=== PATIENT | female | born 1955 | race Two or more races ===

== ENCOUNTER 2022-01-28 12:07 | Inpatient (IN) | payer MEDICAID, OTHER ==
[~2022-01-28] VITALS: Ht 162.6 cm; Wt 77.1 kg
[2022-01-28] MEDS ORDERED: SODIUM CHLORIDE 0.9% 1,000 ML IV ONE (12:15)
[2022-01-28] MEDS ORDERED: cefTRIAXone 1GM/50ML D5W 50 ML IV ONE (12:15)
[2022-01-28] MEDS ORDERED: AZITHROMYCIN 500MG/ 250ML 250 ML IV ONE (12:15)
[2022-01-28] MEDS ORDERED: SODIUM CHLORIDE 0.9% 2,250 ML IV ONE (12:30)
[2022-01-28 15:16] LABS: Lactic Acid w/Reflex 3.1 mmol/L (0.4-2.0)
[2022-01-28] MEDS ORDERED: NOREPINEPHRINE 8 MG/250ML KIT 250 ML IV ONE (15:33)
[2022-01-28] MEDS: NOREPINEPHRINE 8 MG/250ML KIT 250 ML IV SCH (15:53)
[2022-01-28] MEDS ORDERED: LACTATED RINGER'S 2,250 ML IV ONE ×2 (16:30→17:15)
[2022-01-28] MEDS ORDERED: VANCOMYCIN PER PHARMACY 1,000 MG IV SCH (16:30)
[2022-01-28] MEDS ORDERED: NITROGLYCERIN 0.4 MG SL TAB SL PRN (16:30)
[2022-01-28] MEDS ORDERED: LORazepam 2MG/ML-1ML VIAL IV PRN (16:30)
[2022-01-28] MEDS ORDERED: MORPHINE SULFATE INJECTION 2 MG/ML SYRG IV PRN ×2 (16:30)
[2022-01-28 16:51] LABS: Basophils # (auto) 0 10 ^3/uL (0-0.2); Eosinophils # (auto) 0 10 ^3/uL (0-0.8); Mean Corpuscular Hemoglobin 22.2 pg (28.0-32.0); White Blood Cell 11.9 10^3/uL (4.4-10.8)
[2022-01-28 16:54] LABS: Basophils % (auto) 0.2 % (0.0-2.0); Eosinophils % (auto) 0.3 % (0.0-7.0); Hematocrit 25.4 % (36.0-46.0); Lymphocytes # (auto) 0.7 10 ^3/uL (0.4-5.4); Lymphocytes % (auto) 6.2 % (10.0-50.0); Mean Corpuscular Hgb Conc. 31.5 g/dL (32.0-36.0); Mean Corpuscular Volume 70.5 fL (80.0-100.0); Monocytes # (auto) 0.7 10 ^3/uL (0-1.3); Monocytes % (auto) 5.8 % (0.0-12.0); Neutrophils # (auto) 10.4 10 ^3/uL (1.6-8.6); Neutrophils % (auto) 87.5 % (37.0-80.0); Nucleated Red Blood Cells % 0.2 %; Red Cell Distribution Width 19.6 % (11.8-14.3)
[2022-01-28 17:08] LABS: Albumin 1.9 g/dL (3.4-5.0); BUN/Creatinine Ratio 12.9; Calcium 7.4 mg/dL (8.5-10.1); Potassium 4.3 mmol/L (3.5-5.1)
[2022-01-28] MEDS ORDERED: ACETAMINOPHEN 650 mg PER 20.3 mL UD PO ONE (17:15)
[2022-01-28 17:17] LABS: Bilirubin, Total 0.5 mg/dL (0.2-1.0); Total Protein 4.8 g/dL (6.4-8.2)
[2022-01-28] MEDS ORDERED: ENOXAPARIN SOD 30 MG/0.3 ML SYRINGE SC ONE (17:30)
[2022-01-28] MEDS ORDERED: SODIUM FERR GLUC 62.5MG/5ML 125 MG in SODIUM CHL 0.9% 100 ML IV ONE (17:30)
[2022-01-28 17:31] LABS: Urine Bacteria NONE SEEN /hpf (None Seen); Urine Blood Negative /uL (Negative); Urine Specific Gravity 1.027 (1.001-1.035); Urine WBC 1 /hpf (0 - 5)
[2022-01-28] MEDS ORDERED: SUCRALFATE 1 GM/10 ML ORAL SUSP PO ONE (18:00)
[2022-01-28] MEDS ORDERED: LIDOCAINE VISCOUS 2% 15ML UD MT ONE (18:00)
[2022-01-28] MEDS ORDERED: PROCHLORPERAZINE EDISYLATE 5 MG/ML 2ML VIAL IV PRN (18:00)
[2022-01-28] MEDS ORDERED: HYDROcodone-ACET 5/325MG TAB PO PRN (18:00)
[2022-01-28] MEDS ORDERED: DOCUSATE SOD 100 MG CAP PO PRN (18:00)
[2022-01-28] MEDS ORDERED: PANTOPRAZOLE 40 MG/10 ML VIAL INJ IV ONE (18:00)
[2022-01-28] MEDS ORDERED: HYDROcodone-ACET 5/325MG TAB PO ONE (18:00)
[2022-01-28] MEDS ORDERED: LACTULOSE 20Gm/30ML SOLN PO PRN (18:00)
[2022-01-28] MEDS ORDERED: LORazepam 0.5 MG TAB PO PRN (18:00)
[2022-01-28] MEDS: IPRATROPIUM BROM 0.5 MG/2.5ML INH SOL NEB SCH ×2 (18:00→22:08)
[2022-01-28] MEDS ORDERED: LIDOCAINE VISCOUS 2% 15ML UD MT PRN (18:00)
[2022-01-28] MEDS ORDERED: IPRATROPIUM BROM 0.5 MG/2.5ML INH SOL NEB ONE (18:00)
[2022-01-28] MEDS ORDERED: IPRATROPIUM BROM 0.5 MG/2.5ML INH SOL ONE (18:28)
[2022-01-28] MEDS: D5W/SOD CHLO 0.9% 1,000 ML IV SCH (18:41)
[2022-01-28] MEDS: PIPERACILLIN-TAZOB 3.375GM 100 ML IV SCH (18:42)
[2022-01-28 18:53] LABS: % Iron Saturation 4.9 % (15-50)
[2022-01-28 21:10] VITALS: BP 107/44
[2022-01-28] MEDS ORDERED: AMIODARONE HCL 150 MG in D5W 5% 100 ML IV ONE (21:30)
[2022-01-28] MEDS ORDERED: AMIODARONE 450mg/250ml AE 250 ML IV SCH (21:45)
[2022-01-28] MEDS ORDERED: AMIODARONE HCL (50 MG/ ML) 3 ML VIAL IV ONE (21:52)
[2022-01-28] MEDS ORDERED: DexAMETHasone SOD PHOS 4 MG/1ML SDV INJ IV SCH (22:00)
[2022-01-28] MEDS: SUCRALFATE 1 GM/10 ML ORAL SUSP PO SCH (22:30)
[2022-01-28] MEDS: ATORVASTATIN 20 MG TAB PO SCH (22:30)
[2022-01-28] MEDS ORDERED: VANCOMYCIN 1GM/250ML 250 ML IV ONE (23:15)
[2022-01-29] VITALS (56 sets, daily range): BP systolic 90–141; BP diastolic 29–64
[2022-01-29] MEDS: PIPERACILLIN-TAZOB 3.375GM 100 ML IV SCH ×4 (01:45→17:31)
[2022-01-29] MEDS: IPRATROPIUM BROM 0.5 MG/2.5ML INH SOL NEB SCH ×5 (02:19→18:13)
[2022-01-29] MEDS: D5W/SOD CHLO 0.9% 1,000 ML IV SCH ×2 (03:30→14:19)
[2022-01-29] MEDS ORDERED: AMIODARONE 450mg/250ml AE 250 ML IV SCH (03:45)
[2022-01-29 03:55] LABS: Basophils # (auto) 0 10 ^3/uL (0-0.2); Basophils % (auto) 0.2 % (0.0-2.0); Monocytes # (auto) 0.9 10 ^3/uL (0-1.3); Nucleated Red Blood Cells % 0.2 %
[2022-01-29 03:56] LABS: Eosinophils # (auto) 0.1 10 ^3/uL (0-0.8); Eosinophils % (auto) 0.4 % (0.0-7.0); Hemoglobin 7.6 g/dL (12.2-16.2); Lymphocytes # (auto) 0.5 10 ^3/uL (0.4-5.4); Lymphocytes % (auto) 3.7 % (10.0-50.0); Mean Corpuscular Hemoglobin 22.3 pg (28.0-32.0); Mean Corpuscular Hgb Conc. 31.6 g/dL (32.0-36.0); Mean Corpuscular Volume 70.6 fL (80.0-100.0); Monocytes % (auto) 6.2 % (0.0-12.0); Neutrophils # (auto) 13.3 10 ^3/uL (1.6-8.6); Neutrophils % (auto) 89.5 % (37.0-80.0); Red Cell Distribution Width 19.6 % (11.8-14.3); White Blood Cell 14.8 10^3/uL (4.4-10.8)
[2022-01-29 04:14] LABS: Albumin 1.7 g/dL (3.4-5.0); BUN/Creatinine Ratio 11.7; Calcium 6.9 mg/dL (8.5-10.1); Potassium 4.1 mmol/L (3.5-5.1)
[2022-01-29 04:17] LABS: Bilirubin, Total 0.6 mg/dL (0.2-1.0); Total Protein 4.1 g/dL (6.4-8.2)
[2022-01-29] MEDS: NOREPINEPHRINE 8 MG/250ML KIT 250 ML IV SCH (05:42)
[2022-01-29] MEDS: SUCRALFATE 1 GM/10 ML ORAL SUSP PO SCH ×4 (05:45→21:56)
[2022-01-29] MEDS ORDERED: ENOXAPARIN SOD 40 MG/0.4 ML SYRINGE SC SCH (10:00)
[2022-01-29] MEDS: THIAMINE HCL 100 MG TAB PO SCH (11:37)
[2022-01-29] MEDS: CHOLECALCIFEROL (VITD3) 2,000 UNIT CAP/TAB PO SCH (11:37)
[2022-01-29] MEDS: SODIUM FERR GLUC 62.5MG/5ML 125 MG in SODIUM CHL 0.9% 100 ML IV SCH (12:34)
[2022-01-29] MEDS: ONDANSETRON HCL 4 MG/2 ML VIAL IV PRN (12:35)
[2022-01-29] MEDS ORDERED: TPN PER PHARMACY 0 ML IV SCH (13:15)
[2022-01-29] MEDS: ENOXAPARIN SOD 30 MG/0.3 ML SYRINGE SC SCH (14:18)
[2022-01-29 14:29] LABS: Magnesium 1.7 mg/dL (1.6-2.6); Phosphorus 2.3 mg/dL (2.5-4.90)
[2022-01-29] MEDS: ASPirin 81 mg TAB PO SCH (14:38)
[2022-01-29] MEDS ORDERED: SODIUM PHOSPHATES 12 MEQ in SODIUM CHL 0.9% 100 ML IV ONE (17:00)
[2022-01-29] MEDS: MAGIC MOUTHWASH 55 ML SUSP MT SCH ×2 (18:21→21:57)
[2022-01-29] MEDS ORDERED: AMINO ACID INFUSION IN D10W 1,000 ML IV NR (20:00)
[2022-01-29] MEDS ORDERED: D5W/SOD CHLO 0.9% 1,000 ML IV SCH (20:00)
[2022-01-29] MEDS ORDERED: IPRATROPIUM BROM 0.5 MG/2.5ML INH SOL NEB PRN (21:30)
[2022-01-29] MEDS: ATORVASTATIN 20 MG TAB PO SCH (21:56)
[2022-01-29] MEDS: PANTOPRAZOLE 40 MG/10 ML VIAL INJ IV SCH (21:57)
[2022-01-29] MEDS: MORPHINE SULFATE INJECTION 2 MG/ML SYRG IV PRN (22:04)
[2022-01-30] VITALS (26 sets, daily range): BP systolic 82–134; BP diastolic 29–90
[2022-01-30] MEDS ORDERED: DEXTROSE (50%) 50ML SYRG IV SCH
[2022-01-30] MEDS: PIPERACILLIN-TAZOB 3.375GM 100 ML IV SCH ×2 (00:08→06:06)
[2022-01-30] MEDS: InsuLIN REG 1unit/0.01ml Soln (100units/ml) SC SCH ×4 (00:19→18:00)
[2022-01-30] MEDS: ACCU-CHEK COMFORT CURVE STRIP VI SCH ×4 (00:20→18:00)
[2022-01-30] MEDS: ONDANSETRON HCL 4 MG/2 ML VIAL IV PRN ×4 (00:20→20:05)
[2022-01-30 04:15] LABS: Basophils # (auto) 0 10 ^3/uL (0-0.2); Eosinophils # (auto) 0 10 ^3/uL (0-0.8); Mean Corpuscular Hemoglobin 22.4 pg (28.0-32.0); Nucleated Red Blood Cells % 0.2 %; Red Blood Cells 3.06 10^6/uL (4.0-5.20); White Blood Cell 12.2 10^3/uL (4.4-10.8)
[2022-01-30 04:17] LABS: Basophils % (auto) 0.3 % (0.0-2.0); Eosinophils % (auto) 0.1 % (0.0-7.0); Hematocrit 21.2 % (36.0-46.0); Lymphocytes # (auto) 1.2 10 ^3/uL (0.4-5.4); Mean Corpuscular Hgb Conc. 32.3 g/dL (32.0-36.0); Mean Corpuscular Volume 69.2 fL (80.0-100.0); Monocytes # (auto) 0.8 10 ^3/uL (0-1.3); Monocytes % (auto) 6.5 % (0.0-12.0); Neutrophils # (auto) 10.1 10 ^3/uL (1.6-8.6); Neutrophils % (auto) 83.1 % (37.0-80.0); Red Cell Distribution Width 19.1 % (11.8-14.3)
[2022-01-30 04:29] LABS: Albumin 1.4 g/dL (3.4-5.0); BUN/Creatinine Ratio 11.8; Calcium 7.3 mg/dL (8.5-10.1); Magnesium 1.7 mg/dL (1.6-2.6)
[2022-01-30 04:31] LABS: Bilirubin, Total 0.4 mg/dL (0.2-1.0); Total Protein 4.1 g/dL (6.4-8.2)
[2022-01-30 04:44] LABS: Potassium 2.9 mmol/L (3.5-5.1)
[2022-01-30 04:45] LABS: Hemoglobin 6.9 g/dL (12.2-16.2)
[2022-01-30] MEDS ORDERED: POTASSIUM CHL 20MEQ/100ML 100 ML IV ONE (05:30)
[2022-01-30] MEDS: MAGIC MOUTHWASH 55 ML SUSP MT SCH ×4 (06:07→22:00)
[2022-01-30] MEDS: SUCRALFATE 1 GM/10 ML ORAL SUSP PO SCH ×4 (07:00→22:10)
[2022-01-30] MEDS: PANTOPRAZOLE 40 MG/10 ML VIAL INJ IV SCH (09:39)
[2022-01-30] MEDS ORDERED: POTASSIUM PHOSPHATE 44 MEQ in D5W 5% 250 ML IV ONE (09:45)
[2022-01-30] MEDS: D5W/SOD CHL 0.45%/KCL 20MEQ 1,000 ML IV SCH ×2 (09:56→22:15)
[2022-01-30] MEDS: THIAMINE HCL 100 MG TAB PO SCH (10:00)
[2022-01-30] MEDS: CHOLECALCIFEROL (VITD3) 2,000 UNIT CAP/TAB PO SCH (10:00)
[2022-01-30] MEDS: ENOXAPARIN SOD 30 MG/0.3 ML SYRINGE SC SCH (10:00)
[2022-01-30] MEDS: ASPirin 81 mg TAB PO SCH (10:00)
[2022-01-30] MEDS: MORPHINE SULFATE INJECTION 2 MG/ML SYRG IV PRN ×2 (11:46→20:12)
[2022-01-30] MEDS: SODIUM FERR GLUC 62.5MG/5ML 125 MG in SODIUM CHL 0.9% 100 ML IV SCH (11:49)
[2022-01-30] MEDS ORDERED: VANCOMYCIN 1GM/250ML 250 ML IV SCH (14:00)
[2022-01-30] MEDS: CEFEPIME 1GM/ 50ML 50 ML IV SCH ×2 (14:00→22:11)
[2022-01-30 19:35] LABS: BUN/Creatinine Ratio 7.4; Calcium 7.5 mg/dL (8.5-10.1); Potassium 3.3 mmol/L (3.5-5.1)
[2022-01-30] MEDS ORDERED: TPN PER PHARMACY IV NR ×9 (20:00)
[2022-01-30] MEDS: ATORVASTATIN 20 MG TAB PO SCH (22:10)
[2022-01-31] MEDS: ACCU-CHEK COMFORT CURVE STRIP VI SCH ×4 (00:09→17:48)
[2022-01-31] MEDS: InsuLIN REG 1unit/0.01ml Soln (100units/ml) SC SCH ×4 (00:11→17:46)
[2022-01-31] MEDS: D5W/SOD CHL 0.45%/KCL 20MEQ 1,000 ML IV SCH ×3 (02:36→05:59)
[2022-01-31 05:00] VITALS: BP 117/58
[2022-01-31] MEDS: MAGIC MOUTHWASH 55 ML SUSP MT SCH ×4 (05:14→22:00)
[2022-01-31 05:30] LABS: Basophils # (auto) 0 10 ^3/uL (0-0.2); Basophils % (auto) 0.2 % (0.0-2.0); Eosinophils # (auto) 0 10 ^3/uL (0-0.8); Lymphocytes # (auto) 1.5 10 ^3/uL (0.4-5.4); Lymphocytes % (auto) 14.3 % (10.0-50.0); Monocytes # (auto) 0.5 10 ^3/uL (0-1.3); Neutrophils # (auto) 8.5 10 ^3/uL (1.6-8.6); Neutrophils % (auto) 80.4 % (37.0-80.0); White Blood Cell 10.6 10^3/uL (4.4-10.8)
[2022-01-31 05:33] LABS: Eosinophils % (auto) 0.1 % (0.0-7.0); Hematocrit 24.5 % (36.0-46.0); Hemoglobin 8.3 g/dL (12.2-16.2); Mean Corpuscular Hemoglobin 23.9 pg (28.0-32.0); Mean Corpuscular Volume 70.4 fL (80.0-100.0); Nucleated Red Blood Cells % 0.2 %; Red Blood Cells 3.47 10^6/uL (4.0-5.20)
[2022-01-31] MEDS: ONDANSETRON HCL 4 MG/2 ML VIAL IV PRN ×3 (05:35→23:16)
[2022-01-31] MEDS: CEFEPIME 1GM/ 50ML 50 ML IV SCH ×2 (05:36→08:39)
[2022-01-31] MEDS: SUCRALFATE 1 GM/10 ML ORAL SUSP PO SCH ×5 (05:36→23:10)
[2022-01-31] MEDS: MORPHINE SULFATE INJECTION 2 MG/ML SYRG IV PRN (05:36)
[2022-01-31 05:49] LABS: Albumin 1.4 g/dL (3.4-5.0); Calcium 7.2 mg/dL (8.5-10.1); Magnesium 1.2 mg/dL (1.6-2.6); Potassium 3.2 mmol/L (3.5-5.1)
[2022-01-31 05:54] LABS: BUN/Creatinine Ratio 8.5; Bilirubin, Total 0.5 mg/dL (0.2-1.0); Phosphorus 2.1 mg/dL (2.5-4.90); Total Protein 4.3 g/dL (6.4-8.2)
[2022-01-31 08:00] VITALS: BP 127/64
[2022-01-31] MEDS ORDERED: POTASSIUM PHOSPHATE 44 MEQ in D5W 5% 250 ML IV ONE (10:45)
[2022-01-31] MEDS: PANTOPRAZOLE 40 MG/10 ML VIAL INJ IV SCH (11:16)
[2022-01-31] MEDS: ASPirin 81 mg TAB PO SCH (11:16)
[2022-01-31] MEDS: CHOLECALCIFEROL (VITD3) 2,000 UNIT CAP/TAB PO SCH (11:17)
[2022-01-31] MEDS: THIAMINE HCL 100 MG TAB PO SCH (11:17)
[2022-01-31] MEDS: ENOXAPARIN SOD 30 MG/0.3 ML SYRINGE SC SCH (11:17)
[2022-01-31] MEDS: MAGNESIUM SULFATE 1GM/100ML 100 ML IV SCH ×2 (11:45→13:30)
[2022-01-31 12:00] VITALS: BP 116/65
[2022-01-31] MEDS: SODIUM FERR GLUC 62.5MG/5ML 125 MG in SODIUM CHL 0.9% 100 ML IV SCH (13:41)
[2022-01-31] MEDS: VANCOMYCIN 1GM/250ML 250 ML IV SCH (15:45)
[2022-01-31 16:00] VITALS: BP 109/58
[2022-01-31] MEDS ORDERED: TPN PER PHARMACY IV NR ×9 (20:00)
[2022-01-31 22:00] VITALS: BP 120/59
[2022-01-31] MEDS: ATORVASTATIN 20 MG TAB PO SCH (23:10)
[2022-02-01] MEDS: ACCU-CHEK COMFORT CURVE STRIP VI SCH ×4 (01:06→18:33)
[2022-02-01] MEDS ORDERED: MAGNESIUM SULFATE 1GM/100ML 100 ML IV ONE (01:10)
[2022-02-01] MEDS: MAGNESIUM SULFATE 1GM/100ML 100 ML IV SCH ×2 (01:21→02:52)
[2022-02-01] MEDS ORDERED: MAGNESIUM SULFATE 1GM/100ML 100 ML IV SCH (02:45)
[2022-02-01 05:00] VITALS: BP 125/61
[2022-02-01] MEDS: MAGIC MOUTHWASH 55 ML SUSP MT SCH (06:00)
[2022-02-01] MEDS: VANCOMYCIN 1GM/250ML 250 ML IV SCH (06:08)
[2022-02-01 06:18] LABS: Potassium 3.5 mmol/L (3.5-5.1)
[2022-02-01 06:25] LABS: Albumin 1.6 g/dL (3.4-5.0); BUN/Creatinine Ratio 12.8; Bilirubin, Total 0.4 mg/dL (0.2-1.0); Calcium 7.8 mg/dL (8.5-10.1); Magnesium 2.8 mg/dL (1.6-2.6); Phosphorus 3.3 mg/dL (2.5-4.90); Total Protein 4.9 g/dL (6.4-8.2)
[2022-02-01] MEDS: InsuLIN REG 1unit/0.01ml Soln (100units/ml) SC SCH ×4 (06:28→18:30)
[2022-02-01 06:30] LABS: Basophils # (auto) 0 10 ^3/uL (0-0.2); Basophils % (auto) 0.2 % (0.0-2.0); Eosinophils # (auto) 0 10 ^3/uL (0-0.8); Lymphocytes # (auto) 1.7 10 ^3/uL (0.4-5.4); Neutrophils # (auto) 6.8 10 ^3/uL (1.6-8.6)
[2022-02-01 06:31] LABS: Hematocrit 26.8 % (36.0-46.0); Hemoglobin 8.7 g/dL (12.2-16.2); Lymphocytes % (auto) 18.7 % (10.0-50.0); Mean Corpuscular Hemoglobin 23.6 pg (28.0-32.0); Mean Corpuscular Hgb Conc. 32.6 g/dL (32.0-36.0); Mean Corpuscular Volume 72.2 fL (80.0-100.0); Monocytes # (auto) 0.7 10 ^3/uL (0-1.3); Monocytes % (auto) 7.3 % (0.0-12.0); Neutrophils % (auto) 73.8 % (37.0-80.0); Nucleated Red Blood Cells % 0.1 %; Red Blood Cells 3.71 10^6/uL (4.0-5.20); Red Cell Distribution Width 21.4 % (11.8-14.3); White Blood Cell 9.3 10^3/uL (4.4-10.8)
[2022-02-01] MEDS: MORPHINE SULFATE INJECTION 2 MG/ML SYRG IV PRN (08:40)
[2022-02-01] MEDS: ONDANSETRON HCL 4 MG/2 ML VIAL IV PRN ×2 (08:40→21:52)
[2022-02-01 08:50] VITALS: BP 123/44
[2022-02-01] MEDS: SUCRALFATE 1 GM/10 ML ORAL SUSP PO SCH ×4 (09:30→22:00)
[2022-02-01] MEDS: THIAMINE HCL 100 MG TAB PO SCH (09:31)
[2022-02-01] MEDS: PANTOPRAZOLE 40 MG/10 ML VIAL INJ IV SCH (09:31)
[2022-02-01] MEDS: ASPirin 81 mg TAB PO SCH (09:32)
[2022-02-01] MEDS: CHOLECALCIFEROL (VITD3) 2,000 UNIT CAP/TAB PO SCH (09:32)
[2022-02-01] MEDS: ENOXAPARIN SOD 30 MG/0.3 ML SYRINGE SC SCH ×2 (09:32→09:34)
[2022-02-01] MEDS ORDERED: IOHEXOL 300 MG/ML 100ML BOTTLE IJ ONE (11:55)
[2022-02-01 12:30] VITALS: BP 107/54
[2022-02-01 12:50] VITALS: BP 118/60
[2022-02-01] MEDS: ceFAZolin 2 GM in D5W 5% 100 ML IV SCH (15:25)
[2022-02-01 16:57] VITALS: BP 123/48
[2022-02-01] MEDS: TPN PER PHARMACY IV NR ×9 (21:01)
[2022-02-01 21:43] VITALS: BP 111/54
[2022-02-02] MEDS: ceFAZolin 2 GM in D5W 5% 100 ML IV SCH ×4 (00:50→21:51)
[2022-02-02] MEDS: D5W/SOD CHLO 0.9% 1,000 ML IV SCH ×2 (01:58→15:45)
[2022-02-02 05:00] VITALS: BP 134/61
[2022-02-02] MEDS: ACCU-CHEK COMFORT CURVE STRIP VI SCH ×5 (05:56→23:51)
[2022-02-02] MEDS: InsuLIN REG 1unit/0.01ml Soln (100units/ml) SC SCH ×5 (05:56→23:51)
[2022-02-02] MEDS: ONDANSETRON HCL 4 MG/2 ML VIAL IV PRN ×2 (06:17→12:19)
[2022-02-02 06:30] LABS: Eosinophils # (auto) 0 10 ^3/uL (0-0.8); White Blood Cell 8.9 10^3/uL (4.4-10.8)
[2022-02-02 06:33] LABS: Basophils # (auto) 0.1 10 ^3/uL (0-0.2); Basophils % (auto) 0.6 % (0.0-2.0); Eosinophils % (auto) 0.2 % (0.0-7.0); Hemoglobin 8.8 g/dL (12.2-16.2); Lymphocytes % (auto) 22.5 % (10.0-50.0); Mean Corpuscular Hemoglobin 24.1 pg (28.0-32.0); Mean Corpuscular Hgb Conc. 33.9 g/dL (32.0-36.0); Monocytes # (auto) 0.9 10 ^3/uL (0-1.3); Neutrophils # (auto) 5.9 10 ^3/uL (1.6-8.6); Neutrophils % (auto) 66.7 % (37.0-80.0); Nucleated Red Blood Cells % 0.1 %; Red Blood Cells 3.66 10^6/uL (4.0-5.20)
[2022-02-02 06:43] LABS: Albumin 1.7 g/dL (3.4-5.0); BUN/Creatinine Ratio 11.4; Calcium 8.2 mg/dL (8.5-10.1); Magnesium 1.9 mg/dL (1.6-2.6); Potassium 3.6 mmol/L (3.5-5.1)
[2022-02-02 06:51] LABS: Red Cell Distribution Width 21.9 % (11.8-14.3)
[2022-02-02 07:06] LABS: Bilirubin, Total 0.4 mg/dL (0.2-1.0); Phosphorus 2.6 mg/dL (2.5-4.90); Total Protein 5.1 g/dL (6.4-8.2)
[2022-02-02 09:00] VITALS: BP 154/77
[2022-02-02] MEDS: ASPirin 81 mg TAB PO SCH (09:27)
[2022-02-02] MEDS: ENOXAPARIN SOD 30 MG/0.3 ML SYRINGE SC SCH (09:27)
[2022-02-02] MEDS: CHOLECALCIFEROL (VITD3) 2,000 UNIT CAP/TAB PO SCH (09:27)
[2022-02-02] MEDS: PANTOPRAZOLE 40 MG/10 ML VIAL INJ IV SCH (09:27)
[2022-02-02] MEDS: SUCRALFATE 1 GM/10 ML ORAL SUSP PO SCH ×5 (09:31→21:57)
[2022-02-02] MEDS: MORPHINE SULFATE INJECTION 2 MG/ML SYRG IV PRN (09:40)
[2022-02-02 13:00] VITALS: BP 141/71
[2022-02-02 17:00] VITALS: BP 134/73
[2022-02-02] MEDS: TPN PER PHARMACY IV NR ×9 (20:00)
[2022-02-02 21:25] VITALS: BP 143/67
[2022-02-03 05:04] VITALS: BP 167/74
[2022-02-03] MEDS: MORPHINE SULFATE INJECTION 2 MG/ML SYRG IV PRN (05:12)
[2022-02-03] MEDS: ONDANSETRON HCL 4 MG/2 ML VIAL IV PRN ×2 (05:13→10:54)
[2022-02-03] MEDS: ceFAZolin 2 GM in D5W 5% 100 ML IV SCH ×3 (05:30→21:46)
[2022-02-03] MEDS: ACCU-CHEK COMFORT CURVE STRIP VI SCH ×3 (05:31→18:13)
[2022-02-03] MEDS: InsuLIN REG 1unit/0.01ml Soln (100units/ml) SC SCH ×3 (05:31→18:00)
[2022-02-03] MEDS: SUCRALFATE 1 GM/10 ML ORAL SUSP PO SCH ×4 (06:26→21:46)
[2022-02-03 09:03] VITALS: BP 142/73
[2022-02-03] MEDS: ASPirin 81 mg TAB PO SCH (09:30)
[2022-02-03] MEDS: PANTOPRAZOLE 40 MG/10 ML VIAL INJ IV SCH (09:30)
[2022-02-03] MEDS: CHOLECALCIFEROL (VITD3) 2,000 UNIT CAP/TAB PO SCH (09:30)
[2022-02-03] MEDS: ENOXAPARIN SOD 30 MG/0.3 ML SYRINGE SC SCH (09:31)
[2022-02-03] MEDS: hydrALAZINE HCL 20 MG/ML VL IV PRN (11:47)
[2022-02-03 13:00] VITALS: BP 158/87
[2022-02-03] MEDS: PROMETHAZINE HCL 25 MG/ML 1ML IV PRN (14:26)
[2022-02-03 17:01] VITALS: BP 126/72
[2022-02-03] MEDS: ONDANSETRON ODT 4 MG TAB PO PRN (18:51)
[2022-02-03] MEDS: D5W/SOD CHLO 0.9% 1,000 ML IV SCH (19:30)
[2022-02-03 22:00] VITALS: BP 154/67
[2022-02-04] MEDS: ACCU-CHEK COMFORT CURVE STRIP VI SCH ×5 (00:04→23:45)
[2022-02-04] MEDS: hydrALAZINE HCL 20 MG/ML VL IV PRN (04:34)
[2022-02-04 05:00] VITALS: BP 170/72
[2022-02-04] MEDS: ceFAZolin 2 GM in D5W 5% 100 ML IV SCH ×3 (05:52→21:05)
[2022-02-04] MEDS: InsuLIN REG 1unit/0.01ml Soln (100units/ml) SC SCH ×5 (05:54→23:45)
[2022-02-04] MEDS: SUCRALFATE 1 GM/10 ML ORAL SUSP PO SCH ×4 (06:17→21:20)
[2022-02-04] MEDS: D5W/SOD CHLO 0.9% 1,000 ML IV SCH (07:45)
[2022-02-04 08:00] VITALS: BP 152/65
[2022-02-04 08:10] VITALS: BP 152/65
[2022-02-04] MEDS: ASPirin 81 mg TAB PO SCH (10:35)
[2022-02-04] MEDS: CHOLECALCIFEROL (VITD3) 2,000 UNIT CAP/TAB PO SCH (10:35)
[2022-02-04] MEDS: ENOXAPARIN SOD 30 MG/0.3 ML SYRINGE SC SCH (10:35)
[2022-02-04] MEDS: PANTOPRAZOLE 40 MG/10 ML VIAL INJ IV SCH (10:35)
[2022-02-04] MEDS: ONDANSETRON ODT 4 MG TAB PO PRN (10:36)
[2022-02-04] MEDS: PROMETHAZINE HCL 25 MG/ML 1ML IV PRN (10:45)
[2022-02-04 12:05] VITALS: BP 143/53
[2022-02-04 13:35] LABS: BUN/Creatinine Ratio 5.4; Calcium 8.4 mg/dL (8.5-10.1); Potassium 3.5 mmol/L (3.5-5.1)
[2022-02-04 13:42] LABS: Basophils # (auto) 0.1 10 ^3/uL (0-0.2); Eosinophils # (auto) 0 10 ^3/uL (0-0.8); Hemoglobin 9.2 g/dL (12.2-16.2); Mean Corpuscular Hgb Conc. 32.2 g/dL (32.0-36.0); Nucleated Red Blood Cells % 0.1 %
[2022-02-04 13:46] LABS: Basophils % (auto) 0.8 % (0.0-2.0); Eosinophils % (auto) 0.2 % (0.0-7.0); Hematocrit 28.4 % (36.0-46.0); Lymphocytes # (auto) 1.8 10 ^3/uL (0.4-5.4); Lymphocytes % (auto) 24.4 % (10.0-50.0); Mean Corpuscular Hemoglobin 23.4 pg (28.0-32.0); Monocytes # (auto) 0.6 10 ^3/uL (0-1.3); Monocytes % (auto) 8.3 % (0.0-12.0); Neutrophils % (auto) 66.3 % (37.0-80.0); Red Blood Cells 3.91 10^6/uL (4.0-5.20); Red Cell Distribution Width 22.4 % (11.8-14.3); White Blood Cell 7.6 10^3/uL (4.4-10.8)
[2022-02-04 13:48] LABS: INR 1.1 (0.9-1.15)
[2022-02-04 14:09] LABS: Mean Corpuscular Volume 72.8 fL (80.0-100.0)
[2022-02-04 16:05] VITALS: BP 136/63
[2022-02-04] MEDS: Ensure HIGH Protein Chocolate 8oz Bottle PO SCH (18:21)
[2022-02-04 22:00] VITALS: BP 134/72
[2022-02-05 05:00] VITALS: BP 141/71
[2022-02-05 05:32] LABS: Basophils # (auto) 0 10 ^3/uL (0-0.2); Eosinophils # (auto) 0 10 ^3/uL (0-0.8); Eosinophils % (auto) 0.2 % (0.0-7.0); Monocytes # (auto) 0.8 10 ^3/uL (0-1.3); White Blood Cell 7.5 10^3/uL (4.4-10.8)
[2022-02-05 05:36] LABS: Basophils % (auto) 0.4 % (0.0-2.0); Hematocrit 26.6 % (36.0-46.0); Hemoglobin 8.7 g/dL (12.2-16.2); Lymphocytes # (auto) 2.4 10 ^3/uL (0.4-5.4); Mean Corpuscular Hgb Conc. 32.6 g/dL (32.0-36.0); Mean Corpuscular Volume 73.8 fL (80.0-100.0); Neutrophils # (auto) 4.2 10 ^3/uL (1.6-8.6); Neutrophils % (auto) 56.4 % (37.0-80.0); Nucleated Red Blood Cells % 0.1 %; Red Blood Cells 3.61 10^6/uL (4.0-5.20)
[2022-02-05 05:43] LABS: Red Cell Distribution Width 23.1 % (11.8-14.3)
[2022-02-05 05:57] LABS: Potassium 3.6 mmol/L (3.5-5.1)
[2022-02-05] MEDS: InsuLIN REG 1unit/0.01ml Soln (100units/ml) SC SCH ×3 (06:00→17:51)
[2022-02-05 06:03] LABS: BUN/Creatinine Ratio 8.5; Calcium 8.4 mg/dL (8.5-10.1)
[2022-02-05] MEDS: ACCU-CHEK COMFORT CURVE STRIP VI SCH ×3 (06:17→17:45)
[2022-02-05] MEDS: ceFAZolin 2 GM in D5W 5% 100 ML IV SCH ×3 (06:39→22:07)
[2022-02-05] MEDS: SUCRALFATE 1 GM/10 ML ORAL SUSP PO SCH ×4 (06:40→22:00)
[2022-02-05 08:00] VITALS: BP 151/70
[2022-02-05] MEDS: Ensure HIGH Protein Chocolate 8oz Bottle PO SCH ×3 (08:00→17:45)
[2022-02-05] MEDS: PANTOPRAZOLE 40 MG/10 ML VIAL INJ IV SCH (10:00)
[2022-02-05] MEDS: CHOLECALCIFEROL (VITD3) 2,000 UNIT CAP/TAB PO SCH (10:00)
[2022-02-05] MEDS: ASPirin 81 mg TAB PO SCH (10:00)
[2022-02-05] MEDS: Pro-Stat SF 30ml Vanilla PO SCH (10:00)
[2022-02-05] MEDS: ENOXAPARIN SOD 30 MG/0.3 ML SYRINGE SC SCH (10:00)
[2022-02-05 12:10] VITALS: BP 130/76
[2022-02-05] MEDS ORDERED: BUPIVACAINE 0.25% INJ 50ML VIAL ONE (13:21)
[2022-02-05] MEDS ORDERED: MIDAZOLAM HCL 2MG/2ML 2ml VIAL (1mg/ml) ONE (13:25)
[2022-02-05] MEDS ORDERED: MEPERIDINE HCL (25 MG/ML) 1ML VIAL ONE (13:25)
[2022-02-05] MEDS ORDERED: DexAMETHasone SOD PHOS 10MG/1ML VIAL INJ ONE (13:51)
[2022-02-05] MEDS ORDERED: ceFAZolin 1GM VL ONE (13:57)
[2022-02-05] MEDS ORDERED: PROPOFOL 10 MG/ML 20 ML IV ONE (14:03)
[2022-02-05] MEDS ORDERED: ONDANSETRON HCL 4 MG/2 ML VIAL IV PRN (14:30)
[2022-02-05] MEDS ORDERED: MIDAZOLAM HCL 2MG/2ML 2ml VIAL (1mg/ml) IV PRN (14:30)
[2022-02-05] MEDS ORDERED: ePHEDrine SULFATE 50 MG/ML AMP IV PRN (14:30)
[2022-02-05] MEDS ORDERED: HYDROmorphone HCL 2 MG/ML VL IV PRN (14:30)
[2022-02-05] MEDS ORDERED: LABETALOL HCL 5 MG/ML 4ML SYRINGE IV PRN (14:30)
[2022-02-05] MEDS ORDERED: MORPHINE SULFATE 4 MG/ML SYR/VIAL IV PRN (14:30)
[2022-02-05] MEDS ORDERED: hydrALAZINE HCL 20 MG/ML VL IV PRN (14:30)
[2022-02-05 16:05] VITALS: BP 150/76
[2022-02-05] MEDS: PROMETHAZINE HCL 25 MG/ML 1ML IV PRN (17:16)
[2022-02-05] MEDS: MORPHINE SULFATE INJECTION 2 MG/ML SYRG IV PRN ×2 (17:17→22:49)
[2022-02-05] MEDS: ONDANSETRON ODT 4 MG TAB PO PRN (19:31)
[2022-02-05 21:58] VITALS: BP 146/86
[2022-02-06] MEDS: ACCU-CHEK COMFORT CURVE STRIP VI SCH ×3 (00:40→12:18)
[2022-02-06] MEDS: InsuLIN REG 1unit/0.01ml Soln (100units/ml) SC SCH ×3 (00:40→12:20)
[2022-02-06 05:00] VITALS: BP 143/74
[2022-02-06 05:29] LABS: Basophils # (auto) 0 10 ^3/uL (0-0.2); Eosinophils # (auto) 0 10 ^3/uL (0-0.8); Hemoglobin 8.8 g/dL (12.2-16.2); Mean Corpuscular Hemoglobin 24.3 pg (28.0-32.0); Monocytes # (auto) 0.2 10 ^3/uL (0-1.3); Red Blood Cells 3.62 10^6/uL (4.0-5.20)
[2022-02-06 05:31] LABS: Basophils % (auto) 0.1 % (0.0-2.0); Eosinophils % (auto) 0.1 % (0.0-7.0); Hematocrit 27.1 % (36.0-46.0); Lymphocytes # (auto) 1.7 10 ^3/uL (0.4-5.4); Lymphocytes % (auto) 29.3 % (10.0-50.0); Mean Corpuscular Hgb Conc. 32.5 g/dL (32.0-36.0); Mean Corpuscular Volume 74.8 fL (80.0-100.0); Monocytes % (auto) 3.4 % (0.0-12.0); Neutrophils # (auto) 3.9 10 ^3/uL (1.6-8.6); Neutrophils % (auto) 67.1 % (37.0-80.0); Nucleated Red Blood Cells % 0.2 %; White Blood Cell 5.8 10^3/uL (4.4-10.8)
[2022-02-06 05:38] LABS: Red Cell Distribution Width 23.7 % (11.8-14.3)
[2022-02-06 05:44] LABS: BUN/Creatinine Ratio 11.8; Calcium 8.7 mg/dL (8.5-10.1); Potassium 4.1 mmol/L (3.5-5.1)
[2022-02-06] MEDS: ceFAZolin 2 GM in D5W 5% 100 ML IV SCH ×2 (05:51→14:31)
[2022-02-06] MEDS: SUCRALFATE 1 GM/10 ML ORAL SUSP PO SCH ×2 (06:57→11:30)
[2022-02-06] MEDS: Ensure HIGH Protein Chocolate 8oz Bottle PO SCH (07:35)
[2022-02-06 08:00] VITALS: BP 106/65
[2022-02-06 08:05] VITALS: BP 106/65
[2022-02-06] MEDS: PROMETHAZINE HCL 25 MG/ML 1ML IV PRN (08:55)
[2022-02-06] MEDS: MORPHINE SULFATE INJECTION 2 MG/ML SYRG IV PRN (08:55)
[2022-02-06] MEDS: PANTOPRAZOLE 40 MG/10 ML VIAL INJ IV SCH (10:15)
[2022-02-06] MEDS: ENOXAPARIN SOD 30 MG/0.3 ML SYRINGE SC SCH (10:15)
[2022-02-06] MEDS: ASPirin 81 mg TAB PO SCH (10:16)
[2022-02-06] MEDS: Pro-Stat SF 30ml Vanilla PO SCH (10:16)
[2022-02-06] MEDS: CHOLECALCIFEROL (VITD3) 2,000 UNIT CAP/TAB PO SCH (10:16)
[2022-02-06 11:55] VITALS: BP 121/66
[2022-02-06 14:45] VITALS: BP 121/66
[2022-02-06 16:05] VITALS: BP 122/59
== END 2022-02-06 16:36 | disposition home health service (06) | DRG 720 ==
LOC: ER 12:07 → EDBD 12:07 → TELE 16:28 → ICU WEST 23:55 → TELE-EAST 01-29 03:53
PROVIDERS: ADMIT Hospitalist; ATTEND Internal Medicine Pulmonary Disease
PROC: 05HA33Z Insertion of Infusion Device into Left Brachial Vein, Percutaneous Approach (ICD-10-PCS; 2022-01-28)
PROC: B54NZZA Ultrasonography of Left Upper Extremity Veins, Guidance (ICD-10-PCS; 2022-01-28)
PROC: 30233N1 Transfusion of Nonautologous Red Blood Cells into Peripheral Vein, Percutaneous Approach (ICD-10-PCS; 2022-01-30)
PROC: 05HC33Z Insertion of Infusion Device into Left Basilic Vein, Percutaneous Approach (ICD-10-PCS; principal; 2022-02-04)
PROC: B54NZZA Ultrasonography of Left Upper Extremity Veins, Guidance (ICD-10-PCS; 2022-02-04)
PROC: 0JPT0WZ Removal of Totally Implantable Vascular Access Device from Trunk Subcutaneous Tissue and Fascia, Open Approach (ICD-10-PCS; 2022-02-05)
DX: A41.01 Sepsis due to Methicillin susceptible Staphylococcus aureus (principal); R65.21 Severe sepsis with septic shock; I21.4 Non-ST elevation (NSTEMI) myocardial infarction; J18.9 Pneumonia, unspecified organism; C16.9 Malignant neoplasm of stomach, unspecified; E43 Unspecified severe protein-calorie malnutrition; T80.218A Other infection due to central venous catheter, initial encounter; D62 Acute posthemorrhagic anemia; I80.9 Phlebitis and thrombophlebitis of unspecified site; J44.0 Chronic obstructive pulmonary disease with (acute) lower respiratory infection; R62.7 Adult failure to thrive; Z20.822 Contact with and (suspected) exposure to COVID-19; E86.0 Dehydration; K12.30 Oral mucositis (ulcerative), unspecified; R13.10 Dysphagia, unspecified; G89.3 Neoplasm related pain (acute) (chronic); N18.32 Chronic kidney disease, stage 3b; D64.81 Anemia due to antineoplastic chemotherapy; D50.9 Iron deficiency anemia, unspecified; D69.59 Other secondary thrombocytopenia; E78.5 Hyperlipidemia, unspecified; K52.9 Noninfective gastroenteritis and colitis, unspecified; K20.91 Esophagitis, unspecified with bleeding; Y83.8 Other surgical procedures as the cause of abnormal reaction of the patient, or of later complication, without mention of misadventure at the time of the procedure; Y92.89 Other specified places as the place of occurrence of the external cause; Z68.27 Body mass index [BMI] 27.0-27.9, adult; Z90.710 Acquired absence of both cervix and uterus; Z87.891 Personal history of nicotine dependence
CPT/HCPCS: 36415; 36589; 51702; 71045; 71260; 74177; 80048; 80053; 80202; 81001; 82270; 82542; 82962; 83540; 83550; 83605; 83735; 84100; 84478; 84484; 85025; 85379; 85610; 86850; 86900; 86901; 86920; 87040; 87077; 87081; 87147; 87186; 93005; 93306; 93970; 93971; 94640; 96361; 96365; 96367; 96368; 97163; 99291; C9113; G0378; J0690; J0696; J1100; J1815; J2250; J2405; J2543; J2704; J3480; J3490; J7042; J7060; Q0162

== ENCOUNTER 2022-03-15 10:49 | Inpatient (IN) | payer MEDICAID ==
[~2022-03-15] VITALS: Ht 162.6 cm; Wt 69.0 kg
[2022-03-15] MEDS ORDERED: SODIUM CHLORIDE 0.9% 500 ML IV ONE (11:15)
[2022-03-15] MEDS ORDERED: ONDANSETRON HCL 4 MG/2 ML VIAL IV ONE (11:15)
[2022-03-15 12:36] LABS: Basophils # (auto) 0.1 10 ^3/uL (0-0.2); Eosinophils # (auto) 0.1 10 ^3/uL (0-0.8); Hemoglobin 12.4 g/dL (12.2-16.2); Lymphocytes # (auto) 3.7 10 ^3/uL (0.4-5.4); Neutrophils # (auto) 8.1 10 ^3/uL (1.6-8.6); Neutrophils % (auto) 62.6 % (37.0-80.0); Nucleated Red Blood Cells % 0.1 %
[2022-03-15 12:38] LABS: Basophils % (auto) 0.4 % (0.0-2.0); Eosinophils % (auto) 0.6 % (0.0-7.0); Hematocrit 38.8 % (36.0-46.0); Lymphocytes % (auto) 28.3 % (10.0-50.0); Mean Corpuscular Hemoglobin 26.3 pg (28.0-32.0); Mean Corpuscular Hgb Conc. 31.9 g/dL (32.0-36.0); Mean Corpuscular Volume 82.4 fL (80.0-100.0); Monocytes % (auto) 8.1 % (0.0-12.0); Red Cell Distribution Width 27.3 % (11.8-14.3); White Blood Cell 12.9 10^3/uL (4.4-10.8)
[2022-03-15 12:51] LABS: Albumin 2.2 g/dL (3.4-5.0); Calcium 7.8 mg/dL (8.5-10.1); Potassium 3.7 mmol/L (3.5-5.1)
[2022-03-15 12:55] LABS: BUN/Creatinine Ratio 6.4; Bilirubin, Total 0.6 mg/dL (0.2-1.0); Total Protein 5.8 g/dL (6.4-8.2)
[2022-03-15] MEDS ORDERED: NITROGLYCERIN 0.4 MG SL TAB SL PRN (21:00)
[2022-03-15] MEDS: SODIUM CHLORIDE 0.9% 1,000 ML IV SCH (21:32)
[2022-03-15] MEDS: PIPERACILLIN-TAZOB 2.25GM 50 ML IV SCH (21:40)
[2022-03-16] MEDS ORDERED: PIPERACILLIN-TAZOB 3.375GM 100 ML IV SCH
[2022-03-16] MEDS: PIPERACILLIN-TAZOB 2.25GM 50 ML IV SCH (04:49)
[2022-03-16] MEDS: SODIUM CHLORIDE 0.9% 1,000 ML IV SCH ×3 (05:45→22:00)
[2022-03-16 07:41] LABS: Basophils # (auto) 0.1 10 ^3/uL (0-0.2); Basophils % (auto) 0.9 % (0.0-2.0); Eosinophils # (auto) 0.1 10 ^3/uL (0-0.8); Eosinophils % (auto) 1.4 % (0.0-7.0); Hematocrit 33.1 % (36.0-46.0); Lymphocytes # (auto) 2.5 10 ^3/uL (0.4-5.4); Lymphocytes % (auto) 30.8 % (10.0-50.0); Mean Corpuscular Hemoglobin 27.5 pg (28.0-32.0); Mean Corpuscular Hgb Conc. 33.3 g/dL (32.0-36.0); Mean Corpuscular Volume 82.5 fL (80.0-100.0); Monocytes # (auto) 0.7 10 ^3/uL (0-1.3); Monocytes % (auto) 8.9 % (0.0-12.0); Neutrophils # (auto) 4.8 10 ^3/uL (1.6-8.6); Red Blood Cells 4.01 10^6/uL (4.0-5.20); Red Cell Distribution Width 27.3 % (11.8-14.3); White Blood Cell 8.2 10^3/uL (4.4-10.8)
[2022-03-16 07:50] LABS: Albumin 1.8 g/dL (3.4-5.0); Calcium 7.3 mg/dL (8.5-10.1); Potassium 3.4 mmol/L (3.5-5.1)
[2022-03-16 07:52] LABS: BUN/Creatinine Ratio 8.2
[2022-03-16 07:55] LABS: Bilirubin, Total 0.6 mg/dL (0.2-1.0); Total Protein 4.5 g/dL (6.4-8.2)
[2022-03-16] MEDS: PIPERACILLIN-TAZOB 3.375GM 100 ML IV SCH ×3 (10:43→21:58)
[2022-03-16] MEDS: ENOXAPARIN SOD 40 MG/0.4 ML SYRINGE SC SCH (10:43)
[2022-03-16] MEDS: MORPHINE SULFATE INJ 2 MG/ml SYRG IV PRN ×2 (11:05→19:43)
[2022-03-16 13:00] VITALS: BP 120/76
[2022-03-16] MEDS: ONDANSETRON HCL 4 MG/2 ML VIAL IV PRN ×2 (13:28→19:42)
[2022-03-16] MEDS: SUCRALFATE 1 GM/10 ML ORAL SUSP GT SCH (16:47)
[2022-03-16 17:00] VITALS: BP 124/56
[2022-03-16 21:39] VITALS: BP 135/60
[2022-03-16] MEDS: PANTOPRAZOLE 40 MG/10 ML VIAL INJ IV SCH (21:58)
[2022-03-16 23:14] LABS: Urine Bacteria FEW /hpf (None Seen); Urine Blood Negative /uL (Negative); Urine Specific Gravity 1.013 (1.001-1.035); Urine WBC 13 /hpf (0 - 5)
[2022-03-17 04:39] VITALS: BP 137/64
[2022-03-17] MEDS: PIPERACILLIN-TAZOB 3.375GM 100 ML IV SCH ×3 (04:54→17:39)
[2022-03-17] MEDS: SODIUM CHLORIDE 0.9% 1,000 ML IV SCH ×2 (06:20→15:15)
[2022-03-17] MEDS: SUCRALFATE 1 GM/10 ML ORAL SUSP GT SCH ×2 (06:47→17:39)
[2022-03-17 09:39] VITALS: BP 140/53
[2022-03-17] MEDS: PANTOPRAZOLE 40 MG/10 ML VIAL INJ IV SCH (10:23)
[2022-03-17] MEDS: ENOXAPARIN SOD 40 MG/0.4 ML SYRINGE SC SCH (10:23)
[2022-03-17] MEDS: MORPHINE SULFATE INJ 2 MG/ml SYRG IV PRN ×2 (10:27→11:03)
[2022-03-17] MEDS: ONDANSETRON HCL 4 MG/2 ML VIAL IV PRN (10:28)
[2022-03-17] MEDS ORDERED: LOPERAMIDE HCL 2 MG CAP/TAB PO PRN (11:45)
[2022-03-17 12:26] LABS: Basophils # (auto) 0.1 10 ^3/uL (0-0.2); Basophils % (auto) 1.2 % (0.0-2.0); Eosinophils # (auto) 0 10 ^3/uL (0-0.8); Eosinophils % (auto) 0.1 % (0.0-7.0); Hematocrit 34.1 % (36.0-46.0); Hemoglobin 11.2 g/dL (12.2-16.2); Mean Corpuscular Hemoglobin 27.2 pg (28.0-32.0); Mean Corpuscular Hgb Conc. 32.8 g/dL (32.0-36.0); Monocytes # (auto) 0.5 10 ^3/uL (0-1.3); Monocytes % (auto) 5.9 % (0.0-12.0); Neutrophils # (auto) 4.7 10 ^3/uL (1.6-8.6); Neutrophils % (auto) 56.8 % (37.0-80.0); Nucleated Red Blood Cells % 0.1 %; Red Blood Cells 4.11 10^6/uL (4.0-5.20); White Blood Cell 8.2 10^3/uL (4.4-10.8)
[2022-03-17 12:32] LABS: Calcium 7.2 mg/dL (8.5-10.1)
[2022-03-17 12:36] LABS: BUN/Creatinine Ratio 5.8
[2022-03-17 12:39] LABS: Potassium 2.8 mmol/L (3.5-5.1)
[2022-03-17] MEDS ORDERED: POTASSIUM CHL 20MEQ/100ML 100 ML IV ONE (13:30)
[2022-03-17] MEDS ORDERED: POTASSIUM EFFERVESENT TAB 25 MEQ PO ONE (13:30)
[2022-03-17] MEDS ORDERED: METR500T PO (16:42)
[2022-03-17] MEDS ORDERED: VANC125PO PO (16:42)
[2022-03-17] MEDS ORDERED: LEVO500T31 PO (16:42)
[2022-03-17] MEDS ORDERED: PROB1CHW27 PO (16:42)
[2022-03-17 17:54] VITALS: BP 118/52
[2022-03-17] MEDS ORDERED: VANCOMYCIN HCL 125MG/5ML ORAL SOL PO SCH (18:00)
== END 2022-03-17 19:20 | disposition home health service (06) | DRG 245 ==
LOC: ER 10:49 → OVERFLOW 03-16 00:40 → CENTRAL 03-16 08:41
PROVIDERS: ADMIT Hospitalist; ATTEND Internal Medicine
DX: K51.00 Ulcerative (chronic) pancolitis without complications (principal); C18.9 Malignant neoplasm of colon, unspecified; E11.9 Type 2 diabetes mellitus without complications; I10 Essential (primary) hypertension; R13.10 Dysphagia, unspecified; Z82.49 Family history of ischemic heart disease and other diseases of the circulatory system; Z85.028 Personal history of other malignant neoplasm of stomach; Z83.3 Family history of diabetes mellitus; Z87.891 Personal history of nicotine dependence; Z90.5 Acquired absence of kidney; Z90.710 Acquired absence of both cervix and uterus
CPT/HCPCS: 36415; 74176; 80048; 80053; 81001; 82962; 83605; 84132; 85025; 87045; 87427; 87493; 96361; 96365; 96366; 96375; C9113; G0378; J2405; J2543; J3480

== ENCOUNTER 2022-05-23 00:13 | Emergency (ER) | payer MEDICAID ==
[~2022-05-23] VITALS: Ht 165.1 cm; Wt 131.0 kg
[~2022-05-23 00:13] MED LIST: LEVO500T31 PO; METR500T PO; PROB1CHW27 PO; VANC125PO PO
[2022-05-23 03:35] LABS: Basophils # (auto) 0.1 10 ^3/uL (0-0.2); Basophils % (auto) 0.8 % (0.0-2.0); Eosinophils # (auto) 0 10 ^3/uL (0-0.8); Eosinophils % (auto) 0.4 % (0.0-7.0); Hematocrit 43.2 % (36.0-46.0); Hemoglobin 14.4 g/dL (12.2-16.2); Lymphocytes # (auto) 2.7 10 ^3/uL (0.4-5.4); Lymphocytes % (auto) 23.9 % (10.0-50.0); Mean Corpuscular Hemoglobin 27.8 pg (28.0-32.0); Mean Corpuscular Hgb Conc. 33.2 g/dL (32.0-36.0); Mean Corpuscular Volume 83.8 fL (80.0-100.0); Monocytes # (auto) 0.8 10 ^3/uL (0-1.3); Monocytes % (auto) 7.3 % (0.0-12.0); Neutrophils # (auto) 7.7 10 ^3/uL (1.6-8.6); Neutrophils % (auto) 67.6 % (37.0-80.0); Nucleated Red Blood Cells % 0.1 %; Red Blood Cells 5.16 10^6/uL (4.0-5.20); Red Cell Distribution Width 15.2 % (11.8-14.3); White Blood Cell 11.4 10^3/uL (4.4-10.8)
[2022-05-23 03:50] LABS: Albumin 3.5 g/dL (3.4-5.0); Calcium 9.9 mg/dL (8.5-10.1); Magnesium 2.2 mg/dL (1.6-2.6)
[2022-05-23 03:53] LABS: BUN/Creatinine Ratio 16.4; Bilirubin, Total 0.8 mg/dL (0.2-1.0)
[2022-05-23 03:56] LABS: Potassium 2.1 mmol/L (3.5-5.1)
[2022-05-23] MEDS ORDERED: SODIUM CHLORIDE 0.9% 1,000 ML IV ONE ×2 (04:00→06:45)
[2022-05-23] MEDS: POTASSIUM CHL 20MEQ/100ML 100 ML IV SCH ×2 (04:47→08:25)
[2022-05-23] MEDS ORDERED: POTASSIUM EFFERVESENT TAB 25 MEQ PO ONE (06:45)
[2022-05-23] MEDS ORDERED: POTASSIUM CHL 20MEQ/100ML 100 ML IV ONE (06:45)
[2022-05-23 07:45] LABS: Basophils # (auto) 0 10 ^3/uL (0-0.2); Basophils % (auto) 0.3 % (0.0-2.0); Eosinophils # (auto) 0.1 10 ^3/uL (0-0.8); Eosinophils % (auto) 0.5 % (0.0-7.0); Hematocrit 44.1 % (36.0-46.0); Hemoglobin 14.5 g/dL (12.2-16.2); Lymphocytes # (auto) 2.9 10 ^3/uL (0.4-5.4); Lymphocytes % (auto) 28.3 % (10.0-50.0); Mean Corpuscular Hemoglobin 27.9 pg (28.0-32.0); Mean Corpuscular Hgb Conc. 32.9 g/dL (32.0-36.0); Mean Corpuscular Volume 84.9 fL (80.0-100.0); Monocytes # (auto) 0.7 10 ^3/uL (0-1.3); Monocytes % (auto) 6.9 % (0.0-12.0); Neutrophils # (auto) 6.6 10 ^3/uL (1.6-8.6); Nucleated Red Blood Cells % 0.3 %; Red Cell Distribution Width 14.7 % (11.8-14.3); White Blood Cell 10.3 10^3/uL (4.4-10.8)
[2022-05-23 08:03] LABS: Albumin 3.3 g/dL (3.4-5.0); Calcium 9.3 mg/dL (8.5-10.1)
[2022-05-23 08:06] LABS: Bilirubin, Total 0.7 mg/dL (0.2-1.0); Total Protein 6.6 g/dL (6.4-8.2)
[2022-05-23 08:16] LABS: Potassium 2.6 mmol/L (3.5-5.1)
[2022-05-23] MEDS: SODIUM CHLORIDE 0.9% 1,000 ML IV ONE ×2 (08:24→10:52)
[2022-05-23 08:36] LABS: Urine Bacteria NONE SEEN /hpf (None Seen); Urine Blood Negative /uL (Negative); Urine WBC 7 /hpf (0 - 5)
[2022-05-23] MEDS ORDERED: ONDANSETRON HCL 4 MG/2 ML VIAL IV ONE (09:00)
[2022-05-23 11:14] VITALS: BP 143/69
[2022-05-28] MEDS ORDERED: CIPR-173 PO (04:23)
== END 2022-05-23 12:23 | disposition home or self-care (01) ==
LOC: ER 00:13
DX: E87.6 Hypokalemia (principal); R11.2 Nausea with vomiting, unspecified; I10 Essential (primary) hypertension; E11.9 Type 2 diabetes mellitus without complications; Z90.710 Acquired absence of both cervix and uterus; Z87.891 Personal history of nicotine dependence; Z79.2 Long term (current) use of antibiotics; Z79.899 Other long term (current) drug therapy
CPT/HCPCS: 36415; 71045; 74176; 80053; 81001; 83605; 83735; 84484; 85025; 87040; 96365; 96366; 96375; 99285; J2405; J3480; J7030

== ENCOUNTER 2022-06-08 19:28 | Inpatient (IN) | payer MEDICAID ==
[~2022-06-08] VITALS: Ht 157.5 cm; Wt 61.7 kg
[~2022-06-08 19:28] MED LIST changes: +CIPR-173 PO
[2022-06-08 20:18] LABS: Basophils # (auto) 0.3 10 ^3/uL (0-0.2); Basophils % (auto) 2.4 % (0.0-2.0); Eosinophils # (auto) 0.1 10 ^3/uL (0-0.8); Eosinophils % (auto) 0.7 % (0.0-7.0); Hematocrit 49.7 % (36.0-46.0); Hemoglobin 16.1 g/dL (12.2-16.2); Lymphocytes % (auto) 30.2 % (10.0-50.0); Mean Corpuscular Hemoglobin 27.4 pg (28.0-32.0); Mean Corpuscular Hgb Conc. 32.4 g/dL (32.0-36.0); Mean Corpuscular Volume 84.6 fL (80.0-100.0); Monocytes # (auto) 0.8 10 ^3/uL (0-1.3); Monocytes % (auto) 5.7 % (0.0-12.0); Neutrophils # (auto) 8.1 10 ^3/uL (1.6-8.6); Nucleated Red Blood Cells % 0.2 %; Red Blood Cells 5.87 10^6/uL (4.0-5.20); Red Cell Distribution Width 15.1 % (11.8-14.3); White Blood Cell 13.3 10^3/uL (4.4-10.8)
[2022-06-08 20:41] LABS: Calcium 10.4 mg/dL (8.5-10.1)
[2022-06-08 20:44] LABS: BUN/Creatinine Ratio 16.4; Bilirubin, Total 1.2 mg/dL (0.2-1.0); Total Protein 7.6 g/dL (6.4-8.2)
[2022-06-08 21:20] LABS: Potassium 2.7 mmol/L (3.5-5.1)
[2022-06-08 21:23] LABS: Urine Bacteria NONE SEEN /hpf (None Seen); Urine Blood Negative /uL (Negative); Urine Hyaline Cast FEW /lpf (0 - 2); Urine Mucus FEW (None Seen); Urine Specific Gravity 1.036 (1.001-1.035); Urine WBC 7 /hpf (0 - 5)
[2022-06-09] MEDS ORDERED: SODIUM CHLORIDE 0.9% 1,000 ML IV ONE (02:45)
[2022-06-09] MEDS ORDERED: HYDROmorphone HCL 2 MG/ML VL/or syr IV ONE (02:45)
[2022-06-09] MEDS: POTASSIUM CHL 20MEQ/100ML 100 ML IV SCH ×2 (03:08→10:30)
[2022-06-09] MEDS ORDERED: ACETAMINOPHEN 325 MG TAB PO PRN (03:15)
[2022-06-09] MEDS ORDERED: HYDROcodone-ACET 5/325MG TAB PO PRN (03:15)
[2022-06-09] MEDS ORDERED: DOCUSATE SOD 100 MG CAP PO PRN (03:15)
[2022-06-09] MEDS ORDERED: cefTRIAXone 1GM/50ML D5W 50 ML IV ONE (03:15)
[2022-06-09] MEDS ORDERED: DEXTROSE (50%) 50ML SYRG IV PRN (03:15)
[2022-06-09] MEDS ORDERED: SODIUM CHLORIDE 0.9% 1,000 ML IV SCH (03:15)
[2022-06-09] MEDS ORDERED: NITROGLYCERIN 0.4 MG SL TAB SL PRN (04:15)
[2022-06-09] MEDS ORDERED: MORPHINE SULFATE INJ 2 MG/ml SYRG IV PRN (04:15)
[2022-06-09] MEDS: InsuLIN REG 1unit/0.01ml Soln (100units/ml) SC SCH ×3 (07:54→17:26)
[2022-06-09] MEDS: ACCU-CHEK COMFORT CURVE STRIP VI SCH ×3 (07:54→17:26)
[2022-06-09] MEDS: metroNIDAZOLE 500MG/100ML 100 ML IV SCH ×3 (08:06→22:32)
[2022-06-09] MEDS: ONDANSETRON HCL 4 MG/2 ML VIAL IV PRN (08:08)
[2022-06-09] MEDS: HYDROmorphone HCL 2 MG/ML VL/or syr IV PRN ×3 (08:08→21:16)
[2022-06-09] MEDS ORDERED: POTASSIUM CHL 20MEQ/100ML 100 ML IV ONE (10:52)
[2022-06-09] MEDS: FAMOTIDINE (10MG/ML) 2ML VL IV SCH ×2 (10:57→22:32)
[2022-06-09] MEDS: HEPARIN SODIUM (PORCINE) 5000 UNITS/ML 1ML VIAL SC SCH ×2 (11:08→22:33)
[2022-06-09 12:37] VITALS: BP 107/54
[2022-06-09 12:45] LABS: Basophils # (auto) 0 10 ^3/uL (0-0.2); Basophils % (auto) 0.4 % (0.0-2.0); Eosinophils # (auto) 0 10 ^3/uL (0-0.8); Eosinophils % (auto) 0.2 % (0.0-7.0); Hematocrit 38.4 % (36.0-46.0); Hemoglobin 12.5 g/dL (12.2-16.2); Lymphocytes # (auto) 1.6 10 ^3/uL (0.4-5.4); Lymphocytes % (auto) 14.3 % (10.0-50.0); Mean Corpuscular Hemoglobin 27.5 pg (28.0-32.0); Mean Corpuscular Hgb Conc. 32.6 g/dL (32.0-36.0); Mean Corpuscular Volume 84.3 fL (80.0-100.0); Monocytes # (auto) 0.6 10 ^3/uL (0-1.3); Monocytes % (auto) 5.3 % (0.0-12.0); Neutrophils # (auto) 8.9 10 ^3/uL (1.6-8.6); Neutrophils % (auto) 79.8 % (37.0-80.0); Red Blood Cells 4.56 10^6/uL (4.0-5.20); White Blood Cell 11.2 10^3/uL (4.4-10.8)
[2022-06-09 12:56] LABS: Albumin 3.1 g/dL (3.4-5.0); Calcium 8.9 mg/dL (8.5-10.1)
[2022-06-09 12:58] LABS: Potassium 2.4 mmol/L (3.5-5.1)
[2022-06-09 12:59] LABS: BUN/Creatinine Ratio 24.6; Bilirubin, Total 0.9 mg/dL (0.2-1.0); Total Protein 6.2 g/dL (6.4-8.2)
[2022-06-09] MEDS: SOD CHL 0.9%/ KCL 40MEQ 1,000 ML IV SCH (13:08)
[2022-06-09] MEDS ORDERED: POTASSIUM CHLORIDE 60 MEQ, LIDOCAINE 1% (LOCAL ANESTH.) 6 ML in SODIUM CHL 0.9% 500 ML IV ONE (13:15)
[2022-06-09] MEDS ORDERED: HYDR-4798 PO (16:58)
[2022-06-09] MEDS ORDERED: PANT1INJ3 PO (16:58)
[2022-06-09] MEDS ORDERED: FENT75DI2 TD (16:58)
[2022-06-09] MEDS ORDERED: OMEP20TA PO (16:58)
[2022-06-09 17:00] VITALS: BP 95/59
[2022-06-09 17:09] VITALS: BP 123/73
[2022-06-09 20:00] VITALS: BP 128/50
[2022-06-09 22:00] VITALS: BP 128/47
[2022-06-10] MEDS: ACCU-CHEK COMFORT CURVE STRIP VI SCH ×5 (00:38→23:49)
[2022-06-10] MEDS: SOD CHL 0.9%/ KCL 40MEQ 1,000 ML IV SCH ×3 (01:38→19:15)
[2022-06-10 05:00] VITALS: BP 113/56
[2022-06-10] MEDS: metroNIDAZOLE 500MG/100ML 100 ML IV SCH ×3 (05:25→21:38)
[2022-06-10] MEDS: HYDROmorphone HCL 2 MG/ML VL/or syr IV PRN ×4 (05:25→20:11)
[2022-06-10 05:39] LABS: Basophils # (auto) 0.1 10 ^3/uL (0-0.2); Basophils % (auto) 1.2 % (0.0-2.0); Eosinophils # (auto) 0.1 10 ^3/uL (0-0.8); Hemoglobin 11.2 g/dL (12.2-16.2); Lymphocytes # (auto) 1.7 10 ^3/uL (0.4-5.4); Lymphocytes % (auto) 39.8 % (10.0-50.0); Mean Corpuscular Hgb Conc. 33.1 g/dL (32.0-36.0); Mean Corpuscular Volume 84.6 fL (80.0-100.0); Monocytes # (auto) 0.3 10 ^3/uL (0-1.3); Monocytes % (auto) 6.7 % (0.0-12.0); Neutrophils # (auto) 2.1 10 ^3/uL (1.6-8.6); Neutrophils % (auto) 49.3 % (37.0-80.0); Nucleated Red Blood Cells % 0.1 %; Red Blood Cells 4.02 10^6/uL (4.0-5.20); Red Cell Distribution Width 15.2 % (11.8-14.3); White Blood Cell 4.3 10^3/uL (4.4-10.8)
[2022-06-10 05:52] LABS: Albumin 2.7 g/dL (3.4-5.0); Calcium 8.7 mg/dL (8.5-10.1); Potassium 3.4 mmol/L (3.5-5.1)
[2022-06-10 05:54] LABS: BUN/Creatinine Ratio 28.6
[2022-06-10] MEDS: InsuLIN REG 1unit/0.01ml Soln (100units/ml) SC SCH ×5 (05:55→23:50)
[2022-06-10 05:58] LABS: Bilirubin, Total 0.8 mg/dL (0.2-1.0); Total Protein 5.3 g/dL (6.4-8.2)
[2022-06-10 09:00] VITALS: BP 128/70
[2022-06-10] MEDS: cefTRIAXone 1GM/50ML D5W 50 ML IV SCH (09:23)
[2022-06-10] MEDS: FAMOTIDINE (10MG/ML) 2ML VL IV SCH ×2 (09:23→21:38)
[2022-06-10] MEDS: HEPARIN SODIUM (PORCINE) 5000 UNITS/ML 1ML VIAL SC SCH ×2 (09:26→21:45)
[2022-06-10] MEDS ORDERED: TPN PER PHARMACY 0 ML IV SCH (09:34)
[2022-06-10 09:35] LABS: INR 1.04 (0.9-1.15); Partial Thromboplastin Time 24.1 sec (24.6-33.4)
[2022-06-10 10:17] LABS: Hepatitis B Surface Antibody Negative (Negative)
[2022-06-10 10:45] LABS: Hepatitis A Total Antibody Positive (Negative)
[2022-06-10 12:40] LABS: Hepatitis C Antibody Negative (Negative)
[2022-06-10 13:00] VITALS: BP 118/53
[2022-06-10 14:24] LABS: Magnesium 2.2 mg/dL (1.6-2.6); Phosphorus 1.5 mg/dL (2.5-4.90)
[2022-06-10] MEDS ORDERED: POTASSIUM CHL 20MEQ/100ML 100 ML IV ONE (15:30)
[2022-06-10] MEDS ORDERED: POTASSIUM PHOSPHATE 44 MEQ in D5W 5% 250 ML IV ONE (17:00)
[2022-06-10 17:22] VITALS: BP 134/61
[2022-06-10] MEDS ORDERED: TPN PER PHARMACY IV NR ×7 (20:00)
[2022-06-10 22:00] VITALS: BP 130/70
[2022-06-10] MEDS ORDERED: FENTANYL 50 MCG TD SCH (23:30)
[2022-06-11] MEDS: fentaNYL 50MCG/HR 50 MCG/HR PAT TD SCH (00:06)
[2022-06-11] MEDS: HYDROmorphone HCL 2 MG/ML VL/or syr IV PRN ×6 (00:10→21:16)
[2022-06-11 05:00] VITALS: BP 125/71
[2022-06-11] MEDS: SOD CHL 0.9%/ KCL 40MEQ 1,000 ML IV SCH (05:15)
[2022-06-11 05:23] LABS: Basophils # (auto) 0 10 ^3/uL (0-0.2); Basophils % (auto) 0.9 % (0.0-2.0); Eosinophils # (auto) 0.2 10 ^3/uL (0-0.8); Eosinophils % (auto) 3.4 % (0.0-7.0); Hemoglobin 11.3 g/dL (12.2-16.2); Lymphocytes % (auto) 40.7 % (10.0-50.0); Mean Corpuscular Hemoglobin 28.3 pg (28.0-32.0); Mean Corpuscular Hgb Conc. 33.3 g/dL (32.0-36.0); Mean Corpuscular Volume 84.9 fL (80.0-100.0); Monocytes # (auto) 0.4 10 ^3/uL (0-1.3); Monocytes % (auto) 8.3 % (0.0-12.0); Neutrophils # (auto) 2.3 10 ^3/uL (1.6-8.6); Neutrophils % (auto) 46.7 % (37.0-80.0); Nucleated Red Blood Cells % 0.2 %; White Blood Cell 4.9 10^3/uL (4.4-10.8)
[2022-06-11 05:31] LABS: Albumin 2.6 g/dL (3.4-5.0); Calcium 8.5 mg/dL (8.5-10.1); Potassium 3.9 mmol/L (3.5-5.1)
[2022-06-11 05:35] LABS: BUN/Creatinine Ratio 20.5; Bilirubin, Total 0.5 mg/dL (0.2-1.0); Total Protein 5.5 g/dL (6.4-8.2)
[2022-06-11] MEDS: metroNIDAZOLE 500MG/100ML 100 ML IV SCH ×3 (05:48→21:49)
[2022-06-11] MEDS: InsuLIN REG 1unit/0.01ml Soln (100units/ml) SC SCH ×4 (05:50→23:31)
[2022-06-11] MEDS: ACCU-CHEK COMFORT CURVE STRIP VI SCH ×4 (05:50→23:11)
[2022-06-11] MEDS: cefTRIAXone 1GM/50ML D5W 50 ML IV SCH (08:40)
[2022-06-11] MEDS: FAMOTIDINE (10MG/ML) 2ML VL IV SCH ×2 (08:40→21:49)
[2022-06-11] MEDS: HEPARIN SODIUM (PORCINE) 5000 UNITS/ML 1ML VIAL SC SCH ×2 (08:48→21:49)
[2022-06-11] MEDS: ONDANSETRON HCL 4 MG/2 ML VIAL IV PRN ×4 (08:56→21:16)
[2022-06-11 09:14] VITALS: BP 138/67
[2022-06-11] MEDS: SODIUM CHLORIDE 0.9% 1,000 ML IV SCH ×2 (10:14→23:11)
[2022-06-11 14:58] VITALS: BP 135/51
[2022-06-11 16:54] VITALS: BP 127/55
[2022-06-11] MEDS ORDERED: TPN PER PHARMACY IV NR ×8 (20:00)
[2022-06-11 22:00] VITALS: BP 141/56
[2022-06-12] MEDS: ONDANSETRON HCL 4 MG/2 ML VIAL IV PRN ×5 (01:18→20:50)
[2022-06-12] MEDS: HYDROmorphone HCL 2 MG/ML VL/or syr IV PRN ×5 (01:19→20:50)
[2022-06-12 05:00] VITALS: BP 152/89
[2022-06-12] MEDS: metroNIDAZOLE 500MG/100ML 100 ML IV SCH ×3 (05:22→22:54)
[2022-06-12] MEDS: ACCU-CHEK COMFORT CURVE STRIP VI SCH ×4 (05:23→23:54)
[2022-06-12] MEDS: InsuLIN REG 1unit/0.01ml Soln (100units/ml) SC SCH ×5 (05:32→23:55)
[2022-06-12 06:12] LABS: Basophils # (auto) 0.1 10 ^3/uL (0-0.2); Basophils % (auto) 0.7 % (0.0-2.0); Eosinophils # (auto) 0.1 10 ^3/uL (0-0.8); Eosinophils % (auto) 1.3 % (0.0-7.0); Hematocrit 35.4 % (36.0-46.0); Hemoglobin 11.7 g/dL (12.2-16.2); Lymphocytes # (auto) 1.7 10 ^3/uL (0.4-5.4); Lymphocytes % (auto) 22.3 % (10.0-50.0); Mean Corpuscular Hemoglobin 27.9 pg (28.0-32.0); Mean Corpuscular Volume 84.3 fL (80.0-100.0); Monocytes # (auto) 0.5 10 ^3/uL (0-1.3); Neutrophils # (auto) 5.3 10 ^3/uL (1.6-8.6); Neutrophils % (auto) 69.7 % (37.0-80.0); Red Cell Distribution Width 15.1 % (11.8-14.3); White Blood Cell 7.6 10^3/uL (4.4-10.8)
[2022-06-12 06:24] LABS: Albumin 2.6 g/dL (3.4-5.0); Calcium 8.2 mg/dL (8.5-10.1); Magnesium 1.6 mg/dL (1.6-2.6); Potassium 3.2 mmol/L (3.5-5.1)
[2022-06-12 06:33] LABS: BUN/Creatinine Ratio 19.7; Bilirubin, Total 0.4 mg/dL (0.2-1.0); Phosphorus 1.8 mg/dL (2.5-4.90); Total Protein 5.5 g/dL (6.4-8.2)
[2022-06-12 08:10] VITALS: BP 144/73
[2022-06-12] MEDS: cefTRIAXone 1GM/50ML D5W 50 ML IV SCH (09:27)
[2022-06-12] MEDS: FAMOTIDINE (10MG/ML) 2ML VL IV SCH ×2 (09:27→20:51)
[2022-06-12] MEDS: HEPARIN SODIUM (PORCINE) 5000 UNITS/ML 1ML VIAL SC SCH ×2 (09:28→20:51)
[2022-06-12] MEDS ORDERED: POTASSIUM PHOSPHATE 44 MEQ in D5W 5% 250 ML IV ONE (09:45)
[2022-06-12] MEDS: ASCORBIC ACID 500 MG TAB PO SCH ×2 (10:00→20:52)
[2022-06-12] MEDS: ZINC SULFATE 220mg CAP or TAB PO SCH (10:00)
[2022-06-12] MEDS: CHOLECALCIFEROL (VITD3) 2,000 UNIT CAP/TAB PO SCH (10:00)
[2022-06-12] MEDS: MAGNESIUM SULFATE 1GM/100ML 100 ML IV SCH ×4 (11:00→23:57)
[2022-06-12 12:05] VITALS: BP 139/73
[2022-06-12] MEDS ORDERED: POTASSIUM CHL 20MEQ/100ML 100 ML IV ONE ×2 (12:30→21:30)
[2022-06-12] MEDS: SODIUM CHLORIDE 0.9% 1,000 ML IV SCH (12:42)
[2022-06-12] MEDS ORDERED: MIDAZOLAM HCL 5 MG/ML-1ML VIAL ONE (12:55)
[2022-06-12] MEDS ORDERED: SODIUM CHLORIDE LOCK 10 ML ONE (12:55)
[2022-06-12] MEDS ORDERED: diphenhdrAMINE HCL 50 MG/1 ML VL ONE (12:55)
[2022-06-12] MEDS ORDERED: fentaNYL CITRATE 100 MCG/2 ML VL ONE (12:56)
[2022-06-12] MEDS ORDERED: LIDOCAINE VISCOUS 2% 15ML UD ONE (12:56)
[2022-06-12] MEDS ORDERED: LIDOCAINE VISCOUS 2% 15ML UD MT ONE (16:54)
[2022-06-12] MEDS ORDERED: diphenhdrAMINE HCL 50 MG/1 ML VL IV ONE ×2 (16:56→17:00)
[2022-06-12] MEDS ORDERED: fentaNYL CITRATE 100 MCG/2 ML VL IV ONE (16:56)
[2022-06-12] MEDS ORDERED: MIDAZOLAM HCL 5 MG/ML-1ML VIAL IV ONE (16:56)
[2022-06-12 17:08] VITALS: BP 137/76
[2022-06-12] MEDS ORDERED: TPN PER PHARMACY IV NR ×11 (20:00)
[2022-06-12 22:00] VITALS: BP 119/55
[2022-06-13] MEDS: MAGNESIUM SULFATE 1GM/100ML 100 ML IV SCH (01:07)
[2022-06-13] MEDS: SODIUM CHLORIDE 0.9% 1,000 ML IV SCH ×2 (01:45→15:21)
[2022-06-13] MEDS: HYDROmorphone HCL 2 MG/ML VL/or syr IV PRN ×5 (03:36→22:15)
[2022-06-13 05:00] VITALS: BP 99/47
[2022-06-13] MEDS: metroNIDAZOLE 500MG/100ML 100 ML IV SCH ×2 (05:55→13:54)
[2022-06-13] MEDS: InsuLIN REG 1unit/0.01ml Soln (100units/ml) SC SCH ×4 (06:00→23:28)
[2022-06-13] MEDS: ACCU-CHEK COMFORT CURVE STRIP VI SCH ×4 (06:00→23:20)
[2022-06-13 06:01] LABS: Potassium 3.4 mmol/L (3.5-5.1)
[2022-06-13 06:27] LABS: Albumin 2.3 g/dL (3.4-5.0); BUN/Creatinine Ratio 21.2; Calcium 8.2 mg/dL (8.5-10.1); Magnesium 2.6 mg/dL (1.6-2.6)
[2022-06-13 06:30] LABS: Bilirubin, Total 0.3 mg/dL (0.2-1.0); Phosphorus 2.9 mg/dL (2.5-4.90); Total Protein 4.9 g/dL (6.4-8.2)
[2022-06-13 08:42] VITALS: BP 121/50
[2022-06-13] MEDS: ASCORBIC ACID 500 MG TAB PO SCH ×3 (09:38→22:00)
[2022-06-13] MEDS: ZINC SULFATE 220mg CAP or TAB PO SCH ×2 (09:38→09:55)
[2022-06-13] MEDS: FAMOTIDINE (10MG/ML) 2ML VL IV SCH ×2 (09:38→20:29)
[2022-06-13] MEDS: CHOLECALCIFEROL (VITD3) 2,000 UNIT CAP/TAB PO SCH ×2 (09:39→09:55)
[2022-06-13] MEDS: cefTRIAXone 1GM/50ML D5W 50 ML IV SCH (09:40)
[2022-06-13] MEDS: HEPARIN SODIUM (PORCINE) 5000 UNITS/ML 1ML VIAL SC SCH ×2 (09:56→22:01)
[2022-06-13] MEDS: POTASSIUM CHL 20MEQ/100ML 100 ML IV SCH ×3 (12:00→18:00)
[2022-06-13 13:00] VITALS: BP 152/69
[2022-06-13] MEDS ORDERED: LIDOCAINE 1% (LOCAL ANESTH.) PF 5ml SDV ID ONE (13:00)
[2022-06-13 16:36] VITALS: BP 145/70
[2022-06-13] MEDS ORDERED: SODIUM ACETATE IV NR ×10 (20:00)
[2022-06-13] MEDS ORDERED: [UNRECOGNIZED DRUG - OTHER] IV NR ×10 (20:00)
[2022-06-13] MEDS ORDERED: POTASSIUM ACETATE IV NR ×10 (20:00)
[2022-06-13] MEDS ORDERED: FAT EMULSION IV NR ×10 (20:00)
[2022-06-13 22:00] VITALS: BP 120/54
[2022-06-13] MEDS: SODIUM CHLOR 0.9% PF (SALINE LOCK) 10ML VIAL/SYR IV SCH (22:02)
[2022-06-13] MEDS: ONDANSETRON HCL 4 MG/2 ML VIAL IV PRN (22:18)
[2022-06-13] MEDS: fentaNYL 50MCG/HR 50 MCG/HR PAT TD SCH (23:13)
[2022-06-14] VITALS (7 sets, daily range): BP systolic 110–159; BP diastolic 58–80
[2022-06-14] MEDS: HYDROmorphone HCL 2 MG/ML VL/or syr IV PRN ×5 (04:26→20:23)
[2022-06-14] MEDS: InsuLIN REG 1unit/0.01ml Soln (100units/ml) SC SCH ×4 (05:27→22:19)
[2022-06-14] MEDS: ACCU-CHEK COMFORT CURVE STRIP VI SCH ×4 (05:27→22:18)
[2022-06-14] MEDS: SODIUM CHLORIDE 0.9% 1,000 ML IV SCH ×3 (05:28→20:48)
[2022-06-14 06:07] LABS: Albumin 2.3 g/dL (3.4-5.0); Calcium 8.1 mg/dL (8.5-10.1); Magnesium 2.2 mg/dL (1.6-2.6); Potassium 3.8 mmol/L (3.5-5.1)
[2022-06-14 06:09] LABS: BUN/Creatinine Ratio 26.7; Phosphorus 2.4 mg/dL (2.5-4.90)
[2022-06-14 06:12] LABS: Bilirubin, Total 0.4 mg/dL (0.2-1.0); Total Protein 4.9 g/dL (6.4-8.2)
[2022-06-14] MEDS ORDERED: LORazepam 2MG/ML-1ML VIAL IV PRN ×3 (07:30→07:45)
[2022-06-14] MEDS ORDERED: LORazepam 0.5 MG TAB PO ONE (08:00)
[2022-06-14] MEDS: ASCORBIC ACID 500 MG TAB PO SCH ×2 (10:00→21:47)
[2022-06-14] MEDS: ZINC SULFATE 220mg CAP or TAB PO SCH (10:00)
[2022-06-14] MEDS: HEPARIN SODIUM (PORCINE) 5000 UNITS/ML 1ML VIAL SC SCH ×2 (10:00→22:08)
[2022-06-14] MEDS: CHOLECALCIFEROL (VITD3) 2,000 UNIT CAP/TAB PO SCH (10:00)
[2022-06-14] MEDS: SODIUM CHLOR 0.9% PF (SALINE LOCK) 10ML VIAL/SYR IV SCH ×2 (10:00→22:03)
[2022-06-14] MEDS: cefTRIAXone 1GM/50ML D5W 50 ML IV SCH (11:07)
[2022-06-14] MEDS: PROMETHAZINE HCL 25 MG/ML 1ML IV PRN ×2 (11:07→20:29)
[2022-06-14] MEDS: FAMOTIDINE (10MG/ML) 2ML VL IV SCH ×2 (11:08→22:08)
[2022-06-14] MEDS ORDERED: POTASSIUM PHOSP 22MEQ(15MMOLE) in NS 100 ML IV ONE (11:15)
[2022-06-14] MEDS ORDERED: TPN PER PHARMACY IV NR ×10 (20:00)
[2022-06-15] MEDS: HYDROmorphone HCL 2 MG/ML VL/or syr IV PRN ×4 (01:59→14:57)
[2022-06-15] MEDS: PROMETHAZINE HCL 25 MG/ML 1ML IV PRN ×2 (02:04→05:48)
[2022-06-15 05:00] VITALS: BP 138/64
[2022-06-15] MEDS: ACCU-CHEK COMFORT CURVE STRIP VI SCH ×3 (05:48→18:12)
[2022-06-15] MEDS: InsuLIN REG 1unit/0.01ml Soln (100units/ml) SC SCH ×3 (05:50→18:00)
[2022-06-15 07:27] LABS: Albumin 2.2 g/dL (3.4-5.0); Calcium 7.8 mg/dL (8.5-10.1); Magnesium 2.1 mg/dL (1.6-2.6); Potassium 3.5 mmol/L (3.5-5.1)
[2022-06-15 07:31] LABS: BUN/Creatinine Ratio 27.9; Bilirubin, Total 0.4 mg/dL (0.2-1.0); Phosphorus 2.9 mg/dL (2.5-4.90); Total Protein 4.9 g/dL (6.4-8.2)
[2022-06-15] MEDS: cefTRIAXone 1GM/50ML D5W 50 ML IV SCH (08:21)
[2022-06-15 09:00] VITALS: BP 128/85
[2022-06-15] MEDS: ZINC SULFATE 220mg CAP or TAB PO SCH (09:51)
[2022-06-15] MEDS: FAMOTIDINE (10MG/ML) 2ML VL IV SCH (09:51)
[2022-06-15] MEDS: SODIUM CHLOR 0.9% PF (SALINE LOCK) 10ML VIAL/SYR IV SCH (09:51)
[2022-06-15] MEDS: CHOLECALCIFEROL (VITD3) 2,000 UNIT CAP/TAB PO SCH (09:51)
[2022-06-15] MEDS: ASCORBIC ACID 500 MG TAB PO SCH (09:51)
[2022-06-15] MEDS: HEPARIN SODIUM (PORCINE) 5000 UNITS/ML 1ML VIAL SC SCH (10:00)
[2022-06-15] MEDS ORDERED: POTASSIUM PHOSP 22MEQ(15MMOLE) in NS 100 ML IV ONE (11:00)
[2022-06-15 13:00] VITALS: BP 113/78
[2022-06-15 16:39] VITALS: BP 123/59
[2022-06-15 17:15] VITALS: BP 135/70
[2022-06-15] MEDS ORDERED: SODIUM CHLORIDE 0.9% 1,000 ML IV SCH (20:00)
[2022-06-15] MEDS ORDERED: TPN PER PHARMACY IV NR ×20 (20:00)
== END 2022-06-15 18:47 | disposition short-term general hospital (02) | DRG 720 ==
LOC: ER 19:28 → OVERFLOW 06-09 04:15 → EAST 06-09 10:20 → TELE-EAST 06-10 07:29
PROVIDERS: ADMIT Nurse Practitioner Family; ATTEND Family Medicine
PROC: 0DB78ZX Excision of Stomach, Pylorus, Via Natural or Artificial Opening Endoscopic, Diagnostic (ICD-10-PCS; 2022-06-12)
PROC: 0DB58ZX Excision of Esophagus, Via Natural or Artificial Opening Endoscopic, Diagnostic (ICD-10-PCS; principal; 2022-06-12 16:35)
DX: A41.9 Sepsis, unspecified organism (principal); G93.41 Metabolic encephalopathy; U07.1 COVID-19; K31.1 Adult hypertrophic pyloric stenosis; E87.1 Hypo-osmolality and hyponatremia; C16.9 Malignant neoplasm of stomach, unspecified; E86.0 Dehydration; N17.9 Acute kidney failure, unspecified; E11.65 Type 2 diabetes mellitus with hyperglycemia; E11.22 Type 2 diabetes mellitus with diabetic chronic kidney disease; K21.9 Gastro-esophageal reflux disease without esophagitis; E87.6 Hypokalemia; N39.0 Urinary tract infection, site not specified; N18.2 Chronic kidney disease, stage 2 (mild); Z20.822 Contact with and (suspected) exposure to COVID-19; R74.8 Abnormal levels of other serum enzymes; I12.9 Hypertensive chronic kidney disease with stage 1 through stage 4 chronic kidney disease, or unspecified chronic kidney disease; E83.42 Hypomagnesemia; R64 Cachexia; Z68.22 Body mass index [BMI] 22.0-22.9, adult
CPT/HCPCS: 36415; 36569; 43239; 71045; 76705; 80053; 81001; 82962; 83036; 83690; 83735; 84100; 84478; 84484; 85025; 85610; 85730; 86704; 86706; 86708; 86803; 87040; 87086; 87340; 96361; 96365; 96375; G0378; J0696; J1815; J2001; J2250; J2405; J3480; J3490; J7060

== ENCOUNTER 2022-07-20 15:49 | Inpatient (IN) | payer MEDICAID ==
[~2022-07-20] VITALS: Ht 157.5 cm; Wt 69.0 kg
[~2022-07-20 15:49] MED LIST changes: +FENT75DI2 TD; +HYDR-4798 PO; +OMEP20TA PO; +PANT1INJ3 PO
[2022-07-20 17:35] LABS: Basophils # (auto) 0.1 10 ^3/uL (0-0.2); Basophils % (auto) 0.4 % (0.0-2.0); Eosinophils # (auto) 0 10 ^3/uL (0-0.8); Eosinophils % (auto) 0.2 % (0.0-7.0); Hematocrit 31.5 % (36.0-46.0); Hemoglobin 10.1 g/dL (12.2-16.2); Lymphocytes % (auto) 10.7 % (10.0-50.0); Mean Corpuscular Hemoglobin 27.1 pg (28.0-32.0); Mean Corpuscular Hgb Conc. 32.2 g/dL (32.0-36.0); Mean Corpuscular Volume 83.9 fL (80.0-100.0); Monocytes # (auto) 1.2 10 ^3/uL (0-1.3); Monocytes % (auto) 6.2 % (0.0-12.0); Neutrophils # (auto) 15.7 10 ^3/uL (1.6-8.6); Neutrophils % (auto) 82.5 % (37.0-80.0); Red Blood Cells 3.75 10^6/uL (4.0-5.20); Red Cell Distribution Width 16.6 % (11.8-14.3)
[2022-07-20 18:00] LABS: Albumin 2.2 g/dL (3.4-5.0); Calcium 8.4 mg/dL (8.5-10.1); Potassium 4.3 mmol/L (3.5-5.1)
[2022-07-20 18:03] LABS: Bilirubin, Total 0.4 mg/dL (0.2-1.0); Total Protein 5.5 g/dL (6.4-8.2)
[2022-07-20] MEDS ORDERED: FUROSEMIDE 40 MG/4 ML VIAL IV ONE (18:45)
[2022-07-20] MEDS ORDERED: ONDANSETRON HCL 4 MG/2 ML VIAL IV ONE ×2 (18:45→20:45)
[2022-07-20 20:19] LABS: Urine Bacteria FEW /hpf (None Seen); Urine Blood Negative /uL (Negative); Urine Specific Gravity 1.012 (1.001-1.035); Urine WBC 1 /hpf (0 - 5)
[2022-07-20] MEDS ORDERED: MORPHINE SULFATE INJ 2 MG/ml SYRG IV ONE ×2 (20:45→22:30)
[2022-07-20] MEDS ORDERED: ONDA-144 PO (22:28)
[2022-07-21] MEDS ORDERED: PIPERACILLIN-TAZOB 3.375GM 100 ML IV ONE (00:45)
[2022-07-21] MEDS ORDERED: fentaNYL CITRATE 100 MCG/2 ML VL IV ONE (01:00)
[2022-07-21] MEDS ORDERED: HYDROcodone-ACET 5/325MG TAB PO PRN (02:00)
[2022-07-21] MEDS ORDERED: ACETAMINOPHEN 325 MG TAB PO PRN (02:00)
[2022-07-21] MEDS ORDERED: DOCUSATE SOD 100 MG CAP PO PRN (02:00)
[2022-07-21] MEDS ORDERED: HYDROmorphone HCL 2 MG/ML VL/or syr IV PRN (02:15)
[2022-07-21] MEDS ORDERED: NITROGLYCERIN 0.4 MG SL TAB SL PRN (02:15)
[2022-07-21] MEDS ORDERED: MORPHINE SULFATE INJ 2 MG/ml SYRG IV PRN (02:15)
[2022-07-21 04:30] LABS: Basophils # (auto) 0.1 10 ^3/uL (0-0.2); Basophils % (auto) 0.6 % (0.0-2.0); Eosinophils # (auto) 0 10 ^3/uL (0-0.8); Eosinophils % (auto) 0.2 % (0.0-7.0); Hematocrit 25.1 % (36.0-46.0); Hemoglobin 8.6 g/dL (12.2-16.2); Lymphocytes # (auto) 1.7 10 ^3/uL (0.4-5.4); Lymphocytes % (auto) 11.6 % (10.0-50.0); Mean Corpuscular Hemoglobin 28.4 pg (28.0-32.0); Mean Corpuscular Hgb Conc. 34.2 g/dL (32.0-36.0); Mean Corpuscular Volume 83.1 fL (80.0-100.0); Monocytes # (auto) 1.3 10 ^3/uL (0-1.3); Monocytes % (auto) 8.7 % (0.0-12.0); Neutrophils # (auto) 11.8 10 ^3/uL (1.6-8.6); Neutrophils % (auto) 78.9 % (37.0-80.0); Red Blood Cells 3.02 10^6/uL (4.0-5.20); Red Cell Distribution Width 16.4 % (11.8-14.3); White Blood Cell 14.9 10^3/uL (4.4-10.8)
[2022-07-21 04:43] LABS: Albumin 1.9 g/dL (3.4-5.0); Potassium 3.8 mmol/L (3.5-5.1)
[2022-07-21 04:47] LABS: BUN/Creatinine Ratio 26.8; Bilirubin, Total 0.4 mg/dL (0.2-1.0); INR 1.05 (0.9-1.15); Partial Thromboplastin Time 25.9 sec (24.6-33.4); Total Protein 5.2 g/dL (6.4-8.2)
[2022-07-21] MEDS: SODIUM CHLOR 0.9% PF (SALINE LOCK) 10ML VIAL/SYR IV SCH ×3 (06:14→22:54)
[2022-07-21] MEDS: metroNIDAZOLE 500MG/100ML 100 ML IV SCH ×3 (06:39→22:54)
[2022-07-21] MEDS: cefTRIAXone 1GM/50ML D5W 50 ML IV SCH (08:52)
[2022-07-21] MEDS: ONDANSETRON HCL 4 MG/2 ML VIAL IV PRN ×2 (09:15→14:32)
[2022-07-21] MEDS ORDERED: FAMOTIDINE (10MG/ML) 2ML VL IV SCH (10:00)
[2022-07-21] MEDS ORDERED: GASTROGRAFIN 120 ML SOL ONE (12:53)
[2022-07-21] MEDS ORDERED: NALOXONE HCL 1MG/ML 2ML SYRINGE IV PRN (17:00)
[2022-07-21] MEDS ORDERED: fentaNYL CITRATE 100 MCG/2 ML VL IV PRN (17:00)
[2022-07-21 20:00] VITALS: BP 139/62
[2022-07-21] MEDS ORDERED: fentaNYL 75MCG/HR 75 MCG/HR PAT TD SCH (20:00)
[2022-07-21 22:00] VITALS: BP 139/62
[2022-07-21] MEDS: ONDANSETRON HCL 4 MG/2 ML VIAL IV SCH (22:53)
[2022-07-21] MEDS: HYDROmorphone HCL 2 MG/ML VL/or syr IV PRN (22:53)
[2022-07-22] MEDS ORDERED: InsuLIN REG 1unit/0.01ml Soln (100units/ml) SC SCH
[2022-07-22] MEDS ORDERED: DEXTROSE (50%) 50ML SYRG IV SCH
[2022-07-22] MEDS: SODIUM CHLOR 0.9% PF (SALINE LOCK) 10ML VIAL/SYR IV SCH ×3 (05:21→22:56)
[2022-07-22] MEDS: metroNIDAZOLE 500MG/100ML 100 ML IV SCH ×3 (05:21→22:44)
[2022-07-22] MEDS: ONDANSETRON HCL 4 MG/2 ML VIAL IV SCH ×4 (05:21→18:00)
[2022-07-22 05:34] VITALS: BP 153/63
[2022-07-22 06:51] LABS: Basophils # (auto) 0.1 10 ^3/uL (0-0.2); Basophils % (auto) 0.5 % (0.0-2.0); Eosinophils # (auto) 0.1 10 ^3/uL (0-0.8); Lymphocytes # (auto) 1.9 10 ^3/uL (0.4-5.4); Neutrophils % (auto) 78.3 % (37.0-80.0); Red Blood Cells 3.35 10^6/uL (4.0-5.20)
[2022-07-22 06:53] LABS: Eosinophils % (auto) 0.6 % (0.0-7.0); Hematocrit 27.5 % (36.0-46.0); Lymphocytes % (auto) 12.7 % (10.0-50.0); Mean Corpuscular Hgb Conc. 32.9 g/dL (32.0-36.0); Mean Corpuscular Volume 82.2 fL (80.0-100.0); Monocytes # (auto) 1.2 10 ^3/uL (0-1.3); Monocytes % (auto) 7.9 % (0.0-12.0); Neutrophils # (auto) 11.9 10 ^3/uL (1.6-8.6); Nucleated Red Blood Cells % 0.1 %; Red Cell Distribution Width 16.6 % (11.8-14.3); White Blood Cell 15.2 10^3/uL (4.4-10.8)
[2022-07-22] MEDS ORDERED: TPN PER PHARMACY 0 ML IV SCH (08:00)
[2022-07-22 08:43] LABS: Magnesium 2.2 mg/dL (1.6-2.6); Phosphorus 4.5 mg/dL (2.5-4.90)
[2022-07-22 08:59] LABS: Albumin 2.1 g/dL (3.4-5.0); Calcium 8.1 mg/dL (8.5-10.1)
[2022-07-22 09:00] VITALS: BP 141/70
[2022-07-22 09:02] LABS: BUN/Creatinine Ratio 29.4; Bilirubin, Total 0.4 mg/dL (0.2-1.0); Total Protein 5.2 g/dL (6.4-8.2)
[2022-07-22] MEDS: cefTRIAXone 1GM/50ML D5W 50 ML IV SCH (09:51)
[2022-07-22] MEDS: FAMOTIDINE (10MG/ML) 2ML VL IV SCH (09:52)
[2022-07-22] MEDS: HYDROmorphone HCL 2 MG/ML VL/or syr IV PRN ×2 (09:55→17:30)
[2022-07-22 13:00] VITALS: BP 112/46
[2022-07-22] MEDS ORDERED: LACTULOSE 20Gm/30ML SOLN PO PRN (14:45)
[2022-07-22 17:13] VITALS: BP 116/60
[2022-07-22 20:00] VITALS: BP 111/58
[2022-07-22] MEDS ORDERED: TPN PER PHARMACY IV NR ×9 (20:00)
[2022-07-22 22:00] VITALS: BP 111/58
[2022-07-22] MEDS: ACCU-CHEK COMFORT CURVE STRIP VI SCH (23:18)
[2022-07-22] MEDS: InsuLIN REG 1unit/0.01ml Soln (100units/ml) SC SCH (23:18)
[2022-07-23] MEDS ORDERED: DEXTROSE (50%) 50ML SYRG IV SCH
[2022-07-23] MEDS ORDERED: ACCU-CHEK COMFORT CURVE STRIP VI SCH
[2022-07-23] MEDS: HYDROmorphone HCL 2 MG/ML VL/or syr IV PRN ×2 (01:40→11:34)
[2022-07-23] MEDS: ONDANSETRON HCL 4 MG/2 ML VIAL IV SCH ×5 (01:40→23:52)
[2022-07-23 05:00] VITALS: BP 122/51
[2022-07-23] MEDS: SODIUM CHLOR 0.9% PF (SALINE LOCK) 10ML VIAL/SYR IV SCH ×3 (05:09→21:03)
[2022-07-23] MEDS: metroNIDAZOLE 500MG/100ML 100 ML IV SCH ×3 (05:32→21:03)
[2022-07-23] MEDS: InsuLIN REG 1unit/0.01ml Soln (100units/ml) SC SCH ×3 (05:34→18:00)
[2022-07-23] MEDS: ACCU-CHEK COMFORT CURVE STRIP VI SCH ×3 (05:35→18:00)
[2022-07-23 05:45] LABS: Albumin 1.8 g/dL (3.4-5.0); Calcium 7.4 mg/dL (8.5-10.1); Magnesium 1.9 mg/dL (1.6-2.6); Potassium 3.7 mmol/L (3.5-5.1)
[2022-07-23 05:50] LABS: BUN/Creatinine Ratio 25.4; Bilirubin, Total 0.3 mg/dL (0.2-1.0); Total Protein 4.5 g/dL (6.4-8.2)
[2022-07-23 09:00] VITALS: BP 118/41
[2022-07-23] MEDS: cefTRIAXone 1GM/50ML D5W 50 ML IV SCH (11:18)
[2022-07-23] MEDS: FAMOTIDINE (10MG/ML) 2ML VL IV SCH (11:26)
[2022-07-23 13:00] VITALS: BP 115/59
[2022-07-23] MEDS ORDERED: METR500T PO (15:01)
[2022-07-23 17:00] VITALS: BP 115/44
[2022-07-23] MEDS ORDERED: TPN PER PHARMACY IV NR ×9 (20:00)
[2022-07-24] MEDS: ACCU-CHEK COMFORT CURVE STRIP VI SCH ×3 (00:02→12:29)
[2022-07-24] MEDS: InsuLIN REG 1unit/0.01ml Soln (100units/ml) SC SCH ×3 (00:02→12:29)
[2022-07-24 01:28] VITALS: BP 151/59
[2022-07-24 05:00] VITALS: BP 130/75
[2022-07-24] MEDS: HYDROmorphone HCL 2 MG/ML VL/or syr IV PRN ×2 (05:17→10:08)
[2022-07-24] MEDS: metroNIDAZOLE 500MG/100ML 100 ML IV SCH ×2 (05:33→14:53)
[2022-07-24] MEDS: ONDANSETRON HCL 4 MG/2 ML VIAL IV SCH ×2 (05:34→10:07)
[2022-07-24 06:07] LABS: Potassium 3.6 mmol/L (3.5-5.1)
[2022-07-24 06:17] LABS: Albumin 1.7 g/dL (3.4-5.0); BUN/Creatinine Ratio 25.5; Bilirubin, Total 0.3 mg/dL (0.2-1.0); Calcium 7.3 mg/dL (8.5-10.1); Magnesium 2.4 mg/dL (1.6-2.6); Phosphorus 3.1 mg/dL (2.5-4.90); Total Protein 4.2 g/dL (6.4-8.2)
[2022-07-24] MEDS: SODIUM CHLOR 0.9% PF (SALINE LOCK) 10ML VIAL/SYR IV SCH ×2 (07:02→14:53)
[2022-07-24 08:00] VITALS: BP 151/73
[2022-07-24 09:00] VITALS: BP 151/73
[2022-07-24] MEDS: cefTRIAXone 1GM/50ML D5W 50 ML IV SCH (09:54)
[2022-07-24] MEDS: FAMOTIDINE (10MG/ML) 2ML VL IV SCH (09:54)
[2022-07-24 13:00] VITALS: BP 143/66
[2022-07-24 13:58] VITALS: BP 143/66
[2022-07-24] MEDS ORDERED: ONDANSETRON HCL 4 MG/2 ML VIAL IV ONE (15:30)
[2022-07-24] MEDS ORDERED: TPN PER PHARMACY IV NR ×9 (20:00)
== END 2022-07-24 16:14 | disposition home health service (06) | DRG 720 ==
LOC: ER 15:52 → OVERFLOW 07-21 02:06 → WEST WING 07-21 18:01
PROVIDERS: ADMIT Nurse Practitioner Family; ATTEND Internal Medicine
PROC: 0W9G30Z Drainage of Peritoneal Cavity with Drainage Device, Percutaneous Approach (ICD-10-PCS; principal; 2022-07-22)
DX: A41.9 Sepsis, unspecified organism (principal); N17.9 Acute kidney failure, unspecified; K65.2 Spontaneous bacterial peritonitis; C16.9 Malignant neoplasm of stomach, unspecified; E46 Unspecified protein-calorie malnutrition; R18.8 Other ascites; C78.6 Secondary malignant neoplasm of retroperitoneum and peritoneum; D72.829 Elevated white blood cell count, unspecified; I10 Essential (primary) hypertension; Z20.822 Contact with and (suspected) exposure to COVID-19; K59.00 Constipation, unspecified; R73.03 Prediabetes; Z90.710 Acquired absence of both cervix and uterus; Z92.21 Personal history of antineoplastic chemotherapy; Z68.29 Body mass index [BMI] 29.0-29.9, adult
CPT/HCPCS: 36415; 74018; 74176; 74250; 76700; 76942; 80053; 81001; 82962; 83605; 83615; 83690; 83735; 83986; 84100; 84478; 84484; 85025; 85610; 85730; 87040; 87205; 87426; 89051; 93005; 96365; 96375; 96376; G0378; J0696; J1815; J2405; J2543; J3490